=== PATIENT | male | born 1940 | race Caucasian/White ===

== ENCOUNTER 2017-02-04 17:00 | Observation (INO) ==
[2017-02-04] MEDS ORDERED: 0.9 % Sodium Chloride 1,000 ML IVC ONE (17:07)
--- NOTE | 2017-02-04 17:38 | Emergency Department Note ---
Disposition Clinical Impression: Altered mental status Qualifiers: Altered mental status type: unspecified Qualified Code(s): R41.82 - Altered mental status, unspecified Disposition: Admitted As Inpatient Condition: Fair Time of Disposition: 19:00 Altered Mental Status HPI - General Chief Complaint: ED Altered Mental Status Stated Complaint: AMS Time Seen by Provider: 02/04/17 17:12 Nursing Notes Reviewed: Yes Vital Signs Reviewed: Yes - History of Present Illness HPI Narrative: Patient was found by EMS and brought into the ED secondary to wandering around the city trying to get in cars that are not his. Patient told EMS that he is trying to get to a [facility]. Patient has a that is admitted here [facility]. Patient was previously admitted to [facility] for because he is unable to take care of himself. Unknown why patient was released. Patient currently has no complaints. - Related Data Home Medications Medication Instructions Recorded Confirmed Aricept 10 mg PO DAILY 02/04/17 02/04/17 Aspirin [Lo-Dose Aspirin EC] 81 mg PO DAILY 02/04/17 02/04/17 Fluticasone Propionate 50 mcg NS DAILY 02/04/17 02/04/17 Folic Acid 1 mg PO DAILY 02/04/17 02/04/17 Lisinopril 5 mg PO DAILY 02/04/17 02/04/17 Magnesium 250 mg PO DAILY 02/04/17 02/04/17 Mucinex 600 mg PO Q12HR 02/04/17 02/04/17 Niaspan 1,000 mg PO QPM 02/04/17 02/04/17 Nitroglycerin [Nitrostat] 0.4 mg SL PRN PRN 02/04/17 02/04/17 Omeprazole 40 mg PO DAILY 02/04/17 02/04/17 Plavix 37.5 mg PO DAILY 02/04/17 02/04/17 Simvastatin 40 mg PO DAILY 02/04/17 02/04/17 Symbicort 160/4.5 02/04/17 Allergies Allergy/AdvReac Type Severity Reaction Status Date / Time No Known Allergies Allergy Verified 05/22/15 22:28 All systems ED: reviewed and negative except as stated. Review of Systems: As Per HPI Constitutional: Denies: fever, chills, weakness Eyes: Denies: vision change ENT ED: Denies: congestion Cardiovascular: Denies: chest pain, palpitations Respiratory: Denies: cough Gastrointestinal: Denies: abdominal pain, nausea, vomiting, diarrhea Genitourinary: Denies: urgency, dysuria, frequency Musculoskeletal: Denies: back pain, neck pain, joint swelling, arthralgia, myalgia Integumentary: Denies: rash, abrasion Neurological: Denies: headache Psychiatric: Denies: anxiety Past Medical History - Past Medical History Attestation: Yes The following information was validated with the patient. Source: patient Medical history: Reports: no medical history Psychiatric history: Reports: no psych history - Social History Smoking Status: Current every day smoker Smokeless Tobacco Status: No Alcohol use: Reports: none Drug use: Reports: none Physical Exam 69-year-old male who is alert and oriented 3 and in no acute distress. Right now patient is lying in the bed comfortably. Patient has no focal neurologic deficits. Patient has no weakness. Patient answers questions appropriately Course Vital Signs Pulse Rate 76 02/04/17 17:15 Respiratory Rate 20 02/04/17 17:15 Blood Pressure 112/62 02/04/17 17:15 O2 Sat by Pulse Oximetry 100 02/04/17 17:15 Temperature 97.4 F L 02/07/17 22:45 Pulse Rate 58 02/07/17 22:45 Respiratory Rate 16 02/07/17 22:45 Blood Pressure 101/62 02/07/17 22:45 O2 Sat by Pulse Oximetry 96 02/07/17 22:45 Oxygen Delivery Oxygen Delivery Room Air Altered Mental Status - [facility] Narrative Medical decision making narrative: Patient is 77-year-old male found wandering around the city with altered mental status. Patient has a GCS of 15. He follows certain well. He has no focal no neurologic deficits. Patient's labs show no abnormalities. Head CT was negative for intracranial abnormalities of acute onset. Patient was previously at [facility] because he is unable to take care of himself. Unsure of why the patient is no longer there. The patient will need to be placed at a [facility] facility again. Kirsty of those services states that it will take 3 days to get patient placed. The patient is being admitted for altered mental status. Patient was accepted for admission by Jesus Cole the hospitalist - Lab Data Lab results reviewed: Yes I reviewed the patient's lab results. Lab results narrative: Short CBC 02/04/17 Range/Units 17:35 WBC 8.2 (4.3-11.1) K/mcL Hgb 13.3 (12.9-16.9) g/dL Hct 38.3 (37.5-50.1) % Plt Count 188 (140-400) K/mcL Neutrophils # 5.8 (1.6-8.9) K/mcL BMP 02/04/17 Range/Units 17:35 Sodium 140 (136-145) mEq/L Potassium 3.7 (3.5-4.5) mEq/L Chloride 105 (98-109) mEq/L Carbon Dioxide 26 (19-29) mEq/L BUN 13 (8-26) mg/dL Creatinine 0.79 (0.72-1.25) mg/dL Glucose 95 (70-99) mg/dL Calcium 9.4 (8.6-10.8) mg/dL Cardiac Enzymes 02/04/17 Range/Units 17:35 Troponin I 0.02 (0-0.03) ng/mL Liver Function 02/04/17 Range/Units 17:35 Total Bilirubin 1.5 H (0.2-1.2) mg/dL Direct Bilirubin 0.5 (0.0-0.5) mg/dL AST 19 (5-34) Units/L ALT 6 (0-55) Units/L Alkaline Phosphatase 93 (38-126) Units/L Albumin 3.5 (3.5-5.0) g/dL Result diagrams: 02/07/17 05:13 02/07/17 05:13 Lab Results 02/04/17 02/04/17 02/04/17 Range/Units 17:35 17:35 17:35 WBC 8.2 (4.3-11.1) K/mcL RBC 4.00 L (4.19-5.50) M/mcL Hgb 13.3 (12.9-16.9) g/dL Hct 38.3 (37.5-50.1) % MCV 95.8 (83.0-100.0) fL MCH 33.3 (28.0-33.3) pg MCHC 34.7 (31.6-35.5) g/dL RDW 12.1 (11.5-14.5) % Plt Count 188 (140-400) K/mcL MPV 9.6 (9.4-12.4) fL Immature Gran % 0.2 (0-4) % Seg Neutrophils % 71.1 % Lymphocytes % 20.0 % Monocytes % 7.3 % Eosinophils % 1.2 % Basophils % 0.2 % Neutrophils # 5.8 (1.6-8.9) K/mcL Lymphocytes # 1.6 (0.6-4.6) K/mcL Monocytes # 0.6 (0.0-1.3) K/mcL Eosinophils # 0.1 (0.0-0.6) K/mcL Basophils # 0.0 (0.0-0.2) K/mcL Sodium 140 (136-145) mEq/L Potassium 3.7 (3.5-4.5) mEq/L Chloride 105 (98-109) mEq/L Carbon Dioxide 26 (19-29) mEq/L BUN 13 (8-26) mg/dL Creatinine 0.79 (0.72-1.25) mg/dL Est GFR ( Amer) > 60 (> 60) Est GFR (Non-Af Amer) > 60 (> 60) BUN/Creatinine Ratio 16 (6-26) Glucose 95 (70-99) mg/dL Calculated Osmolality 290 (280-300) Calcium 9.4 (8.6-10.8) mg/dL Total Bilirubin 1.5 H (0.2-1.2) mg/dL Direct Bilirubin 0.5 (0.0-0.5) mg/dL Indirect Bilirubin 1.0 (0.0-1.2) mg/dL AST 19 (5-34) Units/L ALT 6 (0-55) Units/L Alkaline Phosphatase 93 (38-126) Units/L Creatine Kinase 69 (30-200) Units/L Troponin I 0.02 (0-0.03) ng/mL Serum Total Protein 6.8 (6.0-8.3) g/dL Albumin 3.5 (3.5-5.0) g/dL Globulin 3.3 (2.4-3.5) g/dL Albumin/Globulin Ratio 1.1 (1.1-2.2) Ethyl Alcohol < 10 (0-10) mg/dL - Radiology Data Radiology results reviewed: Yes I reviewed the patient's radiology results. Chest X-Ray 02/04/17 17:08 IMPRESSION: No acute abnormality detected. D/ / Jacoby An MD / Jacoby An MD Interpreting Provider: Jacoby An MD Head CT 02/04/17 18:28 IMPRESSION: Stable chronic ischemic and senescent changes, but no CT evidence for acute intracranial process. D/ / Seven Jimenez / Seven Jimenez Interpreting Provider: Seven Jimenez
[2017-02-04 17:42] LABS: Basophils % 0.2 %; Eosinophils # 0.1 K/mcL (0.0-0.6); Eosinophils % 1.2 %; Hematocrit 38.3 % (37.5-50.1); Hemoglobin 13.3 g/dL (12.9-16.9); Immature Granulocytes % 0.2 % (0-4); Lymphocytes # 1.6 K/mcL (0.6-4.6); Mean Corpuscular HGB Conc 34.7 g/dL (31.6-35.5); Mean Corpuscular Hemoglobin 33.3 pg (28.0-33.3); Mean Corpuscular Volume 95.8 fL (83.0-100.0); Mean Platelet Volume 9.6 fL (9.4-12.4); Monocytes # 0.6 K/mcL (0.0-1.3); Monocytes % 7.3 %; Neutrophils # 5.8 K/mcL (1.6-8.9); Platelet Count 188 K/mcL (140-400); Red Cell Distribution Width 12.1 % (11.5-14.5); Segmented Neutrophils % 71.1 %
[2017-02-04 17:57] LABS: Alanine Aminotransferase 6 Units/L (0-55); Albumin 3.5 g/dL (3.5-5.0); Albumin/Globulin Ratio 1.1 (1.1-2.2); Alkaline Phosphatase 93 Units/L (38-126); Aspartate Amino Transferase 19 Units/L (5-34); BUN/Creatinine Ratio 16 (6-26); Bilirubin,Direct 0.5 mg/dL (0.0-0.5); Bilirubin,Total 1.5 mg/dL (0.2-1.2); Blood Urea Nitrogen 13 mg/dL (8-26); Calcium 9.4 mg/dL (8.6-10.8); Carbon Dioxide 26 mEq/L (19-29); Chloride 105 mEq/L (98-109); Creatine Kinase 69 Units/L (30-200); Globulin 3.3 g/dL (2.4-3.5); Glucose 95 mg/dL (70-99); Osmolality,Calculated 290 (280-300); Potassium 3.7 mEq/L (3.5-4.5); Sodium 140 mEq/L (136-145); Total Protein 6.8 g/dL (6.0-8.3); eGFR For African Americans > 60 (> 60); eGFR For Non-African Americans > 60 (> 60)
[2017-02-04 17:58] LABS: Ethanol < 10 mg/dL (0-10)
--- NOTE | 2017-02-04 18:28 | Emergency Department Note ---
START Narrative - START START: I examined this patient and my medical decision-making was reviewed with the Resident Physician. I agree with the documented findings, disposition and treatment plan as described except to the extent set forth below. Patient ED by EMS. He was found wandering on [address] trying to getting cars. He states he was trying to get into his was sick. On exam he is in no acute distress. Oriented to self and place. Abdomen soft. Lungs clear. Vital stable. Plan. We did in fact confirm the patient's is an inpatient in the hospital. They have been attempting to get them both to a long term for placement, however they could not find him today. Patient will be admitted as it is Tuesday night and unable to get him placed into a safe facility at this time. We will admit to medicine.
--- NOTE | 2017-02-04 19:38 | Internal Med History&Physical ---
<Boris Barbosa - Last Filed: 02/05/17 02:09> Date of Encounter: 02/04/17 Time of Encounter: 19:38 Assessment and Plan (1) Dementia Current visit: Yes Status: Acute Mini Mental Status Exam score = 20 indicating clear impairment. May require 24 hour supervision. Dementia has rapidly progressed in the past 2 weeks acccording to the patient's since he stopped taking Aricept CT brain reveals stable chronic ischemic and senescent changes, but no CT evidence for acute intracranial process. Case management has been attempting to get both patient and his to a assisted for placement, however they could not find him today. Patient was admitted as it is Tuesday night and unable to get him placed into a safe facility at this time. Resume home Aricept Continue patient monitoring, may require a sitter to prevent from wandering Case management consulted Qualifiers: Dementia type: unspecified type Dementia behavioral disturbance: with behavioral disturbance Qualified Code(s): F03.91 - Unspecified dementia with behavioral disturbance (2) Protein-calorie malnutrition, moderate Current visit: Yes Status: Acute BMI 16.3 Patient with worsening dementia Nutrition consulted (3) COPD (chronic obstructive pulmonary disease) Current visit: Yes Status: Acute Acute exacerbation of COPD Wheezing on exam Continue nebulizers No antibiotics or steroids at this time Qualifiers: COPD type: COPD with acute exacerbation Qualified Code(s): J44.1 - Chronic obstructive pulmonary disease with (acute) exacerbation (4) HTN (hypertension) Current visit: Yes Status: Chronic Continue home meds Low salt diet Elevate legs while at rest Qualifiers: Hypertension type: essential hypertension Qualified Code(s): I10 - Essential (primary) hypertension (5) HLD (hyperlipidemia) Current visit: Yes Status: Chronic Continue home meds Qualifiers: Hyperlipidemia type: unspecified Qualified Code(s): E78.5 - Hyperlipidemia , unspecified (6) CAD (coronary artery disease) Current visit: Yes Status: Chronic S/p cardiac stents x5 Continue home meds Qualifiers: Coronary Disease-Associated Artery/Lesion type: [place] artery [place] vs. transplanted heart: [place] heart Associated angina: without angina Qualified Code(s): I25.10 - Atherosclerotic heart disease of [place] coronary artery without angina pectoris (7) Tobacco dependence Current visit: Yes Status: Chronic Tobacco cessation discussed Nicotine patch daily (8) DVT prophylaxis Current visit: Yes Status: Acute SCDs Internal Medicine - H&P: HPI Chief complaint: AMS Admitted From: Home Plans for Post Hospital Care: Transfer Group Home Facility History of present illness: Mr. Cortez is a 77 year old male with a PMH of Dementia, HTN, HLD, CAD with cardiac stents x5, and tobacco dependence that presented via EMS after found wandering around on [address] near his apartment trying to get into cars that were not his while trying to get to the hospital to see his . Patient' s is currently admitted here at [facility] and will likely be discharged to [facility] facility. Reportedly, case therapist has been attempting to get them both placed at a assisted, however they could not find him today. Patient is alert & oriented x3 but appears confused and is unable to recall much about his PMH. I spoke with his in room 3A11 who reports patient is a walker and has been brought home multiple times by police while wandering the streets at night. She states his Dementia has rapidly progressed in the past 2 weeks since patient stopped taking Aricept 1 month ago. He is currently alone at the apartment since his was admitted and has difficulty caring for self due to cognitive impairment. Patient will be admitted as he has wheezing on exam and it is Tuesday night and unable to get him placed into a safe facility at this time. Past Med Surg Social Fam HX - Past Medical History Medical history: coronary artery disease, hyperlipidemia, hypertension Psychiatric history: no psych history - Past Surgical History Surgical History: angioplasty/stent (x5) - Social History Smoking Status: Current every day smoker Smokeless Tobacco Status: No Alcohol use: none Drug use: none Internal Medicine - H&P: Meds Aricept 10 mg PO DAILY 02/04/17 [History] Aspirin [Lo-Dose Aspirin EC] 81 mg PO DAILY 02/04/17 [History] Fluticasone Propionate 50 mcg NS DAILY 02/04/17 [History] Folic Acid 1 mg PO DAILY 02/04/17 [History] Lisinopril 5 mg PO DAILY 02/04/17 [History] Magnesium 250 mg PO DAILY 02/04/17 [History] Mucinex 600 mg PO Q12HR 02/04/17 [History] Niaspan 1,000 mg PO QPM 02/04/17 [History] Nitroglycerin [Nitrostat] 0.4 mg SL PRN PRN 02/04/17 [History] Omeprazole 40 mg PO DAILY 02/04/17 [History] Plavix 37.5 mg PO DAILY 02/04/17 [History] Simvastatin 40 mg PO DAILY 02/04/17 [History] Symbicort 160/4.5 02/04/17 [History] 3 Allergy/AdvReac Type Severity Reaction Status Date / Time No Known Allergies Allergy Verified 05/22/15 22:28 All Systems PM: A 10-system review of systems was performed and is negative for pertinent findings except as documented above in the HPI. - Constitutional Constitutional: no anorexia, no chills, no fever(s), no weakness, no weight gain , no weight loss - EENT Eyes: no change in vision Nose, mouth and throat: no dry mouth, no nasal congestion, no sore throat - Cardiovascular Cardiovascular ROS IM: edema, no chest pain, no palpitations - Respiratory Respiratory: no cough, no dyspnea - Gastrointestinal Gastrointestinal: no abdominal pain, no diarrhea, no nausea, no vomiting - Genitourinary Genitourinary ROS male: no dysuria, no urinary frequency, no urinary urgency - Musculoskeletal Musculoskeletal ROS IM: no arthralgias, no numbness, no tingling - Integumentary Integumentary IM: no erythema - Neurological Neurological ROS: confusion, memory loss, no abnormal gait, no tremor(s), no weakness - Psychiatric Psychiatric: confusion, no change in appetite - Endocrine Endocrine IM: no polydipsia, no polyphagia, no polyuria - Hematologic/Lymphatic Hematologic/Lymphatic: easy bruising, no easy bleeding - Constitutional Vitals: Temp Pulse Resp BP Pulse Ox 98.1 F 60 20 121/64 100 02/04/17 17:16 02/04/17 18:32 02/04/17 18:32 02/04/17 18:32 02/04/17 18:32 General appearance: Present: cachectic, A&O X 3, pleasant, no acute distress. Absent: answers questions appropriately - Head Head exam: Present: atraumatic, normal inspection, normocephalic Additional comments: temporal wasting - Eye Eye exam: Present: EOMI, PERRL - ENT ENT exam: Present: mucous membranes moist, normal oropharynx - Neck Neck exam general surgery: Present: normal inspection, supple. Absent: lymphadenopathy, tenderness - Respiratory Respiratory exam: Present: wheezes. Absent: CTAB - Cardiovascular Cardiovascular exam: Present: RRR (occasional extra beat), +S1, +S2 - GI/Abdominal GI/Abdominal exam: Present: normal bowel sounds, soft. Absent: firm, guarding, tenderness - Extremities Exam Extremities exam: Present: full ROM, pedal edema (1+), warm - Back Exam Back exam: Present: normal inspection. Absent: paraspinal tenderness, tenderness - Neurological Exam Neurological exam: Present: alert, normal gait, oriented X3, no focal deficits, strengths equal and symetr throughout. Absent: abnormal gait, motor sensory deficit, facial droop, speech deficit - Expanded Neurological Exam Neurological exam expanded: Absent: tremor Patient oriented to: Present: person, place, time Speech: Present: fluid speech Neuro motor strength exam: LUE: 5, RUE: 5, LLE: 5, RLE: 5 Coma Scale Eye Opening: Spontaneous Coma Scale Motor Response: Obeys Commands Coma Scale Verbal Response: Oriented Coma Scale Total: 15 - Psychiatric Additional comments: Mini Mental Status exam score 20 - Skin Skin exam: Present: dry, intact, warm. Absent: erythema Internal Med - H&P Results - Labs CBC & Chem 7: 02/04/17 17:35 02/04/17 17:35 <Victorina Cyr - Last Filed: 02/05/17 03:04> Date of Encounter: 02/04/17 Internal Medicine - H&P: HPI History of present illness: Mr. Cortez is a 77 year old male All Systems PM: A 10-system review of systems was performed and is negative for pertinent findings except as documented above in the HPI. - Constitutional Vitals: Temp Pulse Resp BP Pulse Ox 97.7 F 49 17 125/76 97 02/04/17 23:29 02/04/17 23:29 02/04/17 23:29 02/04/17 23:29 02/04/17 23:29 Internal Med - H&P Results - Labs CBC & Chem 7: 02/04/17 17:35 02/04/17 17:35 - Attending Attestation I have independently personally seen the patient. Plan discussed with the resident. Patient is brought in for altered mental status. He has underlying dementia but otherwise he seems fully oriented to time place and person asymptomatic and quite mobile. On examination it was noted that he has bilateral wheezing and will restart him on nebulizer treatment. plugger worker will be consulted for placement
[2017-02-04] MEDS ORDERED: Naloxone 0.4 MG/ML INJ IVP PRN (20:49)
[2017-02-04] MEDS ORDERED: Nitroglycerin 0.4 MG TAB.SUBL SL PRN (23:06)
[2017-02-05] MEDS: Famotidine 20 MG TABLET PO SCH ×3 (00:32→22:02)
[2017-02-05] MEDS ORDERED: Ipratropium/Albuterol Neb 3 ML IH PRN (02:10)
[2017-02-05 05:45] LABS: Hematocrit 38.7 % (37.5-50.1); Hemoglobin 13.2 g/dL (12.9-16.9); Mean Corpuscular HGB Conc 34.1 g/dL (31.6-35.5); Mean Corpuscular Hemoglobin 32.9 pg (28.0-33.3); Mean Corpuscular Volume 96.5 fL (83.0-100.0); Mean Platelet Volume 10.1 fL (9.4-12.4); Platelet Count 180 K/mcL (140-400); Red Blood Count 4.01 M/mcL (4.19-5.50); Red Cell Distribution Width 12.1 % (11.5-14.5)
[2017-02-05 06:08] LABS: BUN/Creatinine Ratio 16 (6-26); Blood Urea Nitrogen 12 mg/dL (8-26); Calcium 8.9 mg/dL (8.6-10.8); Carbon Dioxide 27 mEq/L (19-29); Chloride 105 mEq/L (98-109); Glucose 81 mg/dL (70-99); Osmolality,Calculated 285 (280-300); Potassium 3.8 mEq/L (3.5-4.5); Sodium 138 mEq/L (136-145); eGFR For African Americans > 60 (> 60); eGFR For Non-African Americans > 60 (> 60)
[2017-02-05] MEDS: Aspirin Enteric Coated 81 MG Tablet PO SCH (08:40)
[2017-02-05] MEDS: Magnesium Oxide 400 MG TABLET PO SCH (08:40)
[2017-02-05] MEDS: Folic Acid 1 MG TABLET PO SCH (08:40)
[2017-02-05] MEDS: Fluticasone Propionate Nasal 50 MCG/SPRAY BOTTLE NS SCH (08:41)
[2017-02-05] MEDS ORDERED: Nicotine 7 MG PATCH.TD24 TD SCH (09:00)
--- NOTE | 2017-02-05 13:55 | Internal Med Progress Note ---
<Lay Bullock - Last Filed: 02/05/17 14:52> Date of Encounter: 02/05/17 Time of Encounter: 13:50 - Assessment and plan (1) Dementia Current Visit: Yes Status: Acute Assessment and plan: history of rapidly progressing dementia patient has not taken his aricept for about 1 month. frequently found wandering the streets. Head CT showed stable chronic ischemic and senescent changes, no evidence of acute intracranial process. consult to social and political studies professor for placement. PT/OT consulted. Qualifiers: Dementia type: unspecified type Dementia behavioral disturbance: with behavioral disturbance Qualified Code(s): F03.91 - Unspecified dementia with behavioral disturbance (2) Protein-calorie malnutrition, moderate Current Visit: Yes Status: Acute Assessment and plan: consult to nutrition. (3) COPD (chronic obstructive pulmonary disease) Current Visit: Yes Status: Acute Assessment and plan: not in acute exacerbation. PRN duonebs Qualifiers: COPD type: COPD with acute exacerbation Qualified Code(s): J44.1 - Chronic obstructive pulmonary disease with (acute) exacerbation (4) HTN (hypertension) Current Visit: Yes Status: Chronic Assessment and plan: continue home meds blood pressures stable at this time. Qualifiers: Hypertension type: essential hypertension Qualified Code(s): I10 - Essential (primary) hypertension (5) HLD (hyperlipidemia) Current Visit: Yes Status: Chronic Assessment and plan: continue statin Qualifiers: Hyperlipidemia type: unspecified Qualified Code(s): E78.5 - Hyperlipidemia , unspecified (6) CAD (coronary artery disease) Current Visit: Yes Status: Chronic Assessment and plan: history of stent placement x5 continue home ASA, statin, plavix Qualifiers: Coronary Disease-Associated Artery/Lesion type: [place] artery [place] vs. transplanted heart: [place] heart Associated angina: without angina Qualified Code(s): I25.10 - Atherosclerotic heart disease of [place] coronary artery without angina pectoris (7) Tobacco dependence Current Visit: Yes Status: Chronic Assessment and plan: nicotine patch PRn (8) DVT prophylaxis Current Visit: Yes Status: Acute Assessment and plan: heparin SQ - Subjective Interval history: 77 male evaluated at bedside. patient denies nausea, vomiting, diarrhea, fever, chills, chest pain, shortness of breath. he is alert and oriented x3. - Constitutional Vitals: Temp Pulse Resp BP Pulse Ox 97.4 F L 52 16 129/55 98 02/05/17 11:00 02/05/17 11:00 02/05/17 11:00 02/05/17 11:00 02/05/17 11:00 General appearance: Present: cachectic, A&O X 3, pleasant, no acute distress. Absent: answers questions appropriately - Head Head exam: Present: atraumatic, normocephalic - Neck Neck exam general surgery: Present: supple, trachea midline - Respiratory Respiratory exam: Present: CTAB - Cardiovascular Cardiovascular exam: Present: RRR, +S1, +S2 - GI/Abdominal GI/Abdominal exam: Present: normal bowel sounds, soft. Absent: distended, tenderness - Extremities Exam Extremities exam: Absent: cyanotic, pedal edema - Neurological Exam Neurological exam: Present: alert, oriented X3 - Skin Skin exam: Present: intact Internal Medicine: Result - Labs CBC & Chem 7: 02/05/17 04:26 02/05/17 04:26 - VTE Documentation of Mechanical Device: Intermittent pneumatic compression device Consult Discharge Plan - Plan Referrals: Eleazar Lerma Jr, MD [Primary Care Provider] - <HudsonVondavida - Last Filed: 02/05/17 17:08> Date of Encounter: 02/05/17 - Constitutional Vitals: Temp Pulse Resp BP Pulse Ox 97.4 F L 52 16 129/55 98 02/05/17 11:00 02/05/17 11:00 02/05/17 11:00 02/05/17 11:00 02/05/17 11:00 Internal Medicine: Result - Labs CBC & Chem 7: 02/05/17 04:26 02/05/17 04:26 Labs: Short CBC 02/05/17 Range/Units 04:26 WBC 5.8 (4.3-11.1) K/mcL Hgb 13.2 (12.9-16.9) g/dL Hct 38.7 (37.5-50.1) % Plt Count 180 (140-400) K/mcL BMP 02/05/17 04:26 Sodium 138 Potassium 3.8 Chloride 105 Carbon Dioxide 27 BUN 12 Creatinine 0.74 Glucose 81 Calcium 8.9 - Impressions Impressions Echocardiogram 02/04/17 23:10 Impressions: LVEF 60-65%. Normal left ventricular size and systolic function. Normal diastolic function of the left ventricle. No significant valvular dysfunction. No pulmonary hypertension. Left Ventricular Wall Motion: Rest Echo Findings All wall segments showed normal motion. Findings: Study Quality * Technically adequate exam. ECG Findings * Normal sinus rhythm. Left Ventricle * LVEF 60-65%. * Normal LV chamber size, wall thickness and function. * Normal left ventricular diastolic function. Right Ventricle * Normal right ventricular structure and function. Left Atrium * Normal left atrial size. Right Atrium * Normal right atrial size. Interatrial Septum * Interatrial septum not well evaluated. Aortic Valve * Trileaflet aortic valve. * Trileaflet aortic valve with normal function. * No aortic regurgitation. * No aortic stenosis. Mitral Valve * Normal mitral valve structure and function. * No mitral regurgitation. * No mitral stenosis. Tricuspid Valve * Normal tricuspid valve structure. * Mild tricuspid regurgitation. * No pulmonary hypertension. Pulmonic Valve * Pulmonic valve not well visualized. Aorta * Normally sized aortic root. Pericardium * The pericardium appears normal. IVC * Normal IVC dimensions and inspiratory collapse. - Attending Attestation I have seen and examined the patient independently. I have discussed with resident Dr. Bullock regarding the management plan. Agree with the documentation. Patient denies shortness of breath. He is intermittently disoriented and frequently walk around in and sometimes out of the unit. We will place a sitter because of severe dementia. Continue supportive treatment. mop worker consult for placement.
[2017-02-05] MEDS ORDERED: Nicotine 7 MG PATCH.TD24 TD PRN (13:56)
[2017-02-05] MEDS: Niacin (24 HR) 500 MG TAB.ER.24H PO SCH (16:14)
[2017-02-05] MEDS: *HR* Heparin 5,000 UNIT/ML VIAL SQ SCH (16:15)
[2017-02-05] MEDS: POM PO SCH (22:02)
[2017-02-06 01:06] LABS: Basophils % 0.3 %; Eosinophils # 0.2 K/mcL (0.0-0.6); Eosinophils % 2.8 %; Hematocrit 37.1 % (37.5-50.1); Hemoglobin 12.6 g/dL (12.9-16.9); Lymphocytes % 30.8 %; Mean Corpuscular Hemoglobin 32.5 pg (28.0-33.3); Mean Corpuscular Volume 95.6 fL (83.0-100.0); Mean Platelet Volume 9.9 fL (9.4-12.4); Monocytes # 0.7 K/mcL (0.0-1.3); Monocytes % 10.6 %; Neutrophils # 3.6 K/mcL (1.6-8.9); Platelet Count 198 K/mcL (140-400); Red Blood Count 3.88 M/mcL (4.19-5.50); Segmented Neutrophils % 55.5 %
[2017-02-06 05:42] LABS: Bilirubin,Urine Negative (Negative); Blood,Urine Negative (Negative); Clarity,Urine Clear (Clear); Color,Urine Yellow (Yellow); Glucose,Urine (UA) Normal (Normal); Ketones,Urine Negative (Negative); Leukocyte Esterase,Urine Negative (Negative); Nitrite,Urine Negative (Negative); Protein,Urine Negative (Neg-Trace); Specific Gravity,Urine 1.028 (1.010-1.025); Urobilinogen,Urine Normal (Normal)
[2017-02-06 05:48] LABS: Amphetamine Screen,Urine Negative ng/mL (Cutoff=1000); Barbiturate Screen,Urine Negative ng/mL (Cutoff=200); Benzodiazepines Screen,Urine Negative ng/mL (Cutoff=200); Cannabinoid Screen,Urine Negative ng/mL (Cutoff = 50); Cocaine Screen,Urine Negative ng/mL (Cutoff= 300); Opiate Screen,Urine Negative ng/mL (Cutoff=300); Phencyclidine Screen,Urine Negative ng/mL (Cutoff=25)
[2017-02-06] MEDS: *HR* Heparin 5,000 UNIT/ML VIAL SQ SCH (06:23)
[2017-02-06] MEDS: Folic Acid 1 MG TABLET PO SCH (08:16)
[2017-02-06] MEDS: Aspirin Enteric Coated 81 MG Tablet PO SCH (08:16)
[2017-02-06] MEDS: Famotidine 20 MG TABLET PO SCH ×2 (08:16→20:23)
[2017-02-06] MEDS: Magnesium Oxide 400 MG TABLET PO SCH (08:16)
[2017-02-06] MEDS: Fluticasone Propionate Nasal 50 MCG/SPRAY BOTTLE NS SCH (08:17)
--- NOTE | 2017-02-06 10:19 | Internal Med Progress Note ---
<Lay Bullock - Last Filed: 02/06/17 10:17> Date of Encounter: 02/06/17 Time of Encounter: 10:17 - Assessment and plan (1) Dementia Current Visit: Yes Status: Acute Assessment and plan: history of rapidly progressing dementia patient has not taken his aricept for about 1 month. frequently found wandering the streets. Head CT showed stable chronic ischemic and senescent changes, no evidence of acute intracranial process. consult to older adult social work specialist for placement. PT/OT consulted. continue aricept. awaiting older adult social work specialist for placement. Qualifiers: Dementia type: unspecified type Dementia behavioral disturbance: with behavioral disturbance Qualified Code(s): F03.91 - Unspecified dementia with behavioral disturbance (2) Protein-calorie malnutrition, moderate Current Visit: Yes Status: Acute Assessment and plan: consult to nutrition. (3) COPD (chronic obstructive pulmonary disease) Current Visit: Yes Status: Acute Assessment and plan: not in acute exacerbation. PRN duonebs Qualifiers: COPD type: COPD with acute exacerbation Qualified Code(s): J44.1 - Chronic obstructive pulmonary disease with (acute) exacerbation (4) HTN (hypertension) Current Visit: Yes Status: Chronic Assessment and plan: continue home meds blood pressures stable at this time. Qualifiers: Hypertension type: essential hypertension Qualified Code(s): I10 - Essential (primary) hypertension (5) HLD (hyperlipidemia) Current Visit: Yes Status: Chronic Assessment and plan: continue statin Qualifiers: Hyperlipidemia type: unspecified Qualified Code(s): E78.5 - Hyperlipidemia , unspecified (6) CAD (coronary artery disease) Current Visit: Yes Status: Chronic Assessment and plan: history of stent placement x5 continue home ASA, statin, plavix ECho from yesterday showed no significant abnormalities. Qualifiers: Coronary Disease-Associated Artery/Lesion type: [place] artery [place] vs. transplanted heart: [place] heart Associated angina: without angina Qualified Code(s): I25.10 - Atherosclerotic heart disease of [place] coronary artery without angina pectoris (7) Tobacco dependence Current Visit: Yes Status: Chronic Assessment and plan: nicotine patch PRn (8) DVT prophylaxis Current Visit: Yes Status: Acute Assessment and plan: ambulate TID. patient likes to ambulate frequently, so heparin SQ was discontinued. - Subjective Interval history: 77 male evaluated at bedside. patient denies nausea, vomiting, diarrhea, fever, chills, chest pain, shortness of breath. he is alert and oriented x3. - Constitutional Vitals: Temp Pulse Resp BP Pulse Ox 97.9 F 54 16 119/67 96 02/06/17 07:25 02/06/17 07:25 02/06/17 07:25 02/06/17 07:25 02/06/17 07:25 General appearance: Present: cachectic, A&O X 3, pleasant, no acute distress. Absent: answers questions appropriately Internal Medicine: Result - Labs CBC & Chem 7: 02/06/17 00:42 02/05/17 04:26 Labs: Short CBC 02/06/17 Range/Units 00:42 WBC 6.4 (4.3-11.1) K/mcL Hgb 12.6 L (12.9-16.9) g/dL Hct 37.1 L (37.5-50.1) % Plt Count 198 (140-400) K/mcL Neutrophils # 3.6 (1.6-8.9) K/mcL Urine 02/06/17 Range/Units 04:30 Urine Color Yellow (Yellow) Urine Clarity Clear (Clear) Urine pH 6.0 (5.0-8.0) pH Units Ur Specific [place] 1.028 H (1.010-1.025) Urine Protein Negative (Neg-Trace) mg/dL Urine Glucose (UA) Normal (Normal) mg/dL - Impressions Impressions Echocardiogram 02/04/17 23:10 Impressions: LVEF 60-65%. Normal left ventricular size and systolic function. Normal diastolic function of the left ventricle. No significant valvular dysfunction. No pulmonary hypertension. Left Ventricular Wall Motion: Rest Echo Findings All wall segments showed normal motion. Findings: Study Quality * Technically adequate exam. ECG Findings * Normal sinus rhythm. Left Ventricle * LVEF 60-65%. * Normal LV chamber size, wall thickness and function. * Normal left ventricular diastolic function. Right Ventricle * Normal right ventricular structure and function. Left Atrium * Normal left atrial size. Right Atrium * Normal right atrial size. Interatrial Septum * Interatrial septum not well evaluated. Aortic Valve * Trileaflet aortic valve. * Trileaflet aortic valve with normal function. * No aortic regurgitation. * No aortic stenosis. Mitral Valve * Normal mitral valve structure and function. * No mitral regurgitation. * No mitral stenosis. Tricuspid Valve * Normal tricuspid valve structure. * Mild tricuspid regurgitation. * No pulmonary hypertension. Pulmonic Valve * Pulmonic valve not well visualized. Aorta * Normally sized aortic root. Pericardium * The pericardium appears normal. IVC * Normal IVC dimensions and inspiratory collapse. - VTE Documentation of Mechanical Device: Intermittent pneumatic compression device Consult Discharge Plan - Plan Referrals: Eleazar Lerma Jr, MD [Primary Care Provider] - <TreviñoMaria - Last Filed: 02/06/17 16:04> Date of Encounter: 02/06/17 - Constitutional Vitals: Temp Pulse Resp BP Pulse Ox 97.8 F 70 17 125/72 98 02/06/17 11:22 02/06/17 11:22 02/06/17 11:22 02/06/17 11:22 02/06/17 11:22 Internal Medicine: Result - Labs CBC & Chem 7: 02/06/17 00:42 02/05/17 04:26 Labs: Short CBC 02/06/17 Range/Units 00:42 WBC 6.4 (4.3-11.1) K/mcL Hgb 12.6 L (12.9-16.9) g/dL Hct 37.1 L (37.5-50.1) % Plt Count 198 (140-400) K/mcL Neutrophils # 3.6 (1.6-8.9) K/mcL Urine 02/06/17 Range/Units 04:30 Urine Color Yellow (Yellow) Urine Clarity Clear (Clear) Urine pH 6.0 (5.0-8.0) pH Units Ur Specific [place] 1.028 H (1.010-1.025) Urine Protein Negative (Neg-Trace) mg/dL Urine Glucose (UA) Normal (Normal) mg/dL - Impressions Impressions Echocardiogram 02/04/17 23:10 Impressions: LVEF 60-65%. Normal left ventricular size and systolic function. Normal diastolic function of the left ventricle. No significant valvular dysfunction. No pulmonary hypertension. Left Ventricular Wall Motion: Rest Echo Findings All wall segments showed normal motion. Findings: Study Quality * Technically adequate exam. ECG Findings * Normal sinus rhythm. Left Ventricle * LVEF 60-65%. * Normal LV chamber size, wall thickness and function. * Normal left ventricular diastolic function. Right Ventricle * Normal right ventricular structure and function. Left Atrium * Normal left atrial size. Right Atrium * Normal right atrial size. Interatrial Septum * Interatrial septum not well evaluated. Aortic Valve * Trileaflet aortic valve. * Trileaflet aortic valve with normal function. * No aortic regurgitation. * No aortic stenosis. Mitral Valve * Normal mitral valve structure and function. * No mitral regurgitation. * No mitral stenosis. Tricuspid Valve * Normal tricuspid valve structure. * Mild tricuspid regurgitation. * No pulmonary hypertension. Pulmonic Valve * Pulmonic valve not well visualized. Aorta * Normally sized aortic root. Pericardium * The pericardium appears normal. IVC * Normal IVC dimensions and inspiratory collapse. - Attending Attestation I have seen and examined patient independently. I have discussed with resident DR Bullock regarding the management plan. Agree with the documentation. Patient is stable. Continue current treatment and waiting for placement.
--- NOTE | 2017-02-06 11:18 | Electrocardiograph Report ---
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
[2017-02-06] MEDS: Niacin (24 HR) 500 MG TAB.ER.24H PO SCH (16:58)
[2017-02-06] MEDS: POM PO SCH (20:23)
[2017-02-07 05:37] LABS: Basophils % 0.5 %; Eosinophils # 0.2 K/mcL (0.0-0.6); Eosinophils % 3.2 %; Hematocrit 37.9 % (37.5-50.1); Hemoglobin 12.9 g/dL (12.9-16.9); Immature Granulocytes % 0.5 % (0-4); Lymphocytes # 1.9 K/mcL (0.6-4.6); Lymphocytes % 28.6 %; Mean Corpuscular Hemoglobin 32.4 pg (28.0-33.3); Mean Corpuscular Volume 95.2 fL (83.0-100.0); Mean Platelet Volume 9.9 fL (9.4-12.4); Monocytes # 0.6 K/mcL (0.0-1.3); Monocytes % 9.6 %; Neutrophils # 3.8 K/mcL (1.6-8.9); Platelet Count 213 K/mcL (140-400); Red Blood Count 3.98 M/mcL (4.19-5.50); Segmented Neutrophils % 57.6 %
[2017-02-07 05:47] LABS: BUN/Creatinine Ratio 22 (6-26); Blood Urea Nitrogen 18 mg/dL (8-26); Calcium 9.3 mg/dL (8.6-10.8); Carbon Dioxide 27 mEq/L (19-29); Chloride 105 mEq/L (98-109); Glucose 104 mg/dL (70-99); Osmolality,Calculated 290 (280-300); Potassium 3.9 mEq/L (3.5-4.5); Sodium 139 mEq/L (136-145); eGFR For African Americans > 60 (> 60); eGFR For Non-African Americans > 60 (> 60)
[2017-02-07] MEDS: Folic Acid 1 MG TABLET PO SCH (08:54)
[2017-02-07] MEDS: Aspirin Enteric Coated 81 MG Tablet PO SCH (08:54)
[2017-02-07] MEDS: Magnesium Oxide 400 MG TABLET PO SCH (08:54)
[2017-02-07] MEDS: Fluticasone Propionate Nasal 50 MCG/SPRAY BOTTLE NS SCH (08:54)
[2017-02-07] MEDS: Famotidine 20 MG TABLET PO SCH ×2 (08:54→20:58)
--- NOTE | 2017-02-07 14:05 | Internal Med Progress Note ---
<Lay Bullock - Last Filed: 02/07/17 14:01> Date of Encounter: 02/07/17 Time of Encounter: 14:02 - Assessment and plan (1) Dementia Current Visit: Yes Status: Acute Assessment and plan: history of rapidly progressing dementia patient has not taken his aricept for about 1 month. frequently found wandering the streets. Head CT showed stable chronic ischemic and senescent changes, no evidence of acute intracranial process. consult to health care social worker for placement. PT/OT evaluated. no further recs at this time. continue aricept. awaiting health care social worker for placement to [facility]. Qualifiers: Dementia type: unspecified type Dementia behavioral disturbance: with behavioral disturbance Qualified Code(s): F03.91 - Unspecified dementia with behavioral disturbance (2) Protein-calorie malnutrition, moderate Current Visit: Yes Status: Acute Assessment and plan: consult to nutrition. (3) COPD (chronic obstructive pulmonary disease) Current Visit: Yes Status: Acute Assessment and plan: not in acute exacerbation. PRN duonebs Qualifiers: COPD type: COPD with acute exacerbation Qualified Code(s): J44.1 - Chronic obstructive pulmonary disease with (acute) exacerbation (4) HTN (hypertension) Current Visit: Yes Status: Chronic Assessment and plan: continue home meds blood pressures stable at this time. Qualifiers: Hypertension type: essential hypertension Qualified Code(s): I10 - Essential (primary) hypertension (5) HLD (hyperlipidemia) Current Visit: Yes Status: Chronic Assessment and plan: continue statin Qualifiers: Hyperlipidemia type: unspecified Qualified Code(s): E78.5 - Hyperlipidemia , unspecified (6) CAD (coronary artery disease) Current Visit: Yes Status: Chronic Assessment and plan: history of stent placement x5 continue home ASA, statin, plavix ECho from yesterday showed no significant abnormalities. Qualifiers: Coronary Disease-Associated Artery/Lesion type: [place] artery [place] vs. transplanted heart: [place] heart Associated angina: without angina Qualified Code(s): I25.10 - Atherosclerotic heart disease of [place] coronary artery without angina pectoris (7) Tobacco dependence Current Visit: Yes Status: Chronic Assessment and plan: nicotine patch PRn (8) DVT prophylaxis Current Visit: Yes Status: Acute Assessment and plan: ambulate TID. patient likes to ambulate frequently, so heparin SQ was discontinued. - Subjective Interval history: 77 male evaluated at bedside. patient denies nausea, vomiting, diarrhea, fever, chills, chest pain, shortness of breath. he is alert and oriented x3. - Constitutional Vitals: Temp Pulse Resp BP Pulse Ox 97.4 F L 69 16 132/64 97 02/07/17 11:34 02/07/17 11:34 02/07/17 11:34 02/07/17 11:34 02/07/17 11:34 General appearance: Present: cachectic, A&O X 3, pleasant, no acute distress. Absent: answers questions appropriately - Head Head exam: Present: atraumatic, normocephalic - Neck Neck exam general surgery: Present: supple, trachea midline - Respiratory Respiratory exam: Present: CTAB - Cardiovascular Cardiovascular exam: Present: RRR, +S1, +S2 - GI/Abdominal GI/Abdominal exam: Present: normal bowel sounds, soft. Absent: distended, tenderness - Extremities Exam Extremities exam: Absent: cyanotic, pedal edema - Neurological Exam Neurological exam: Present: alert, oriented X3, no focal deficits - Psychiatric Psychiatric exam: Present: normal affect, normal mood Internal Medicine: Result - Labs CBC & Chem 7: 02/07/17 05:13 02/07/17 05:13 Labs: Short CBC 02/07/17 Range/Units 05:13 WBC 6.5 (4.3-11.1) K/mcL Hgb 12.9 (12.9-16.9) g/dL Hct 37.9 (37.5-50.1) % Plt Count 213 (140-400) K/mcL Neutrophils # 3.8 (1.6-8.9) K/mcL BMP 02/07/17 05:13 Sodium 139 Potassium 3.9 Chloride 105 Carbon Dioxide 27 BUN 18 Creatinine 0.83 Glucose 104 H Calcium 9.3 - VTE Documentation of Mechanical Device: Intermittent pneumatic compression device Consult Discharge Plan - Plan Referrals: Eleazar Lerma Jr, MD [Primary Care Provider] - <Maria Treviño - Last Filed: 02/07/17 16:55> Date of Encounter: 02/07/17 - Constitutional Vitals: Temp Pulse Resp BP Pulse Ox 97.4 F L 72 16 121/66 97 02/07/17 11:34 02/07/17 15:05 02/07/17 15:05 02/07/17 15:05 02/07/17 11:34 Internal Medicine: Result - Labs CBC & Chem 7: 02/07/17 05:13 02/07/17 05:13 Labs: Short CBC 02/07/17 Range/Units 05:13 WBC 6.5 (4.3-11.1) K/mcL Hgb 12.9 (12.9-16.9) g/dL Hct 37.9 (37.5-50.1) % Plt Count 213 (140-400) K/mcL Neutrophils # 3.8 (1.6-8.9) K/mcL BMP 02/07/17 05:13 Sodium 139 Potassium 3.9 Chloride 105 Carbon Dioxide 27 BUN 18 Creatinine 0.83 Glucose 104 H Calcium 9.3 - Attending Attestation I saw and examined the patient independently. I have discussed with resident Dr Bullock regarding the management plan. Agree with the documentation. Patient is demented, pleasant, walking around in the room and hallway. Vitals are stable. Waiting for placement.
[2017-02-07] MEDS: Niacin (24 HR) 500 MG TAB.ER.24H PO SCH (16:59)
[2017-02-07] MEDS: POM PO SCH (20:58)
[2017-02-08] MEDS: Fluticasone Propionate Nasal 50 MCG/SPRAY BOTTLE NS SCH ×2 (07:23→07:24)
[2017-02-08] MEDS: Aspirin Enteric Coated 81 MG Tablet PO SCH (07:23)
[2017-02-08] MEDS: Magnesium Oxide 400 MG TABLET PO SCH (07:23)
[2017-02-08] MEDS: Famotidine 20 MG TABLET PO SCH (07:23)
[2017-02-08] MEDS: Folic Acid 1 MG TABLET PO SCH (07:23)
[2017-02-08 09:29] VITALS: BP 153/65
--- NOTE | 2017-02-08 10:50 | Discharge Summary ---
Date of Encounter: 02/08/17 Time of Encounter: 10:48 - Discharge Diagnosis (1) Altered mental status Priority: Primary Status: Acute Qualifiers: Altered mental status type: unspecified Qualified Code(s): R41.82 - Altered mental status, unspecified (2) Dementia Priority: Secondary Status: Acute Qualifiers: Dementia type: unspecified type Dementia behavioral disturbance: with behavioral disturbance Qualified Code(s): F03.91 - Unspecified dementia with behavioral disturbance (3) COPD (chronic obstructive pulmonary disease) Priority: Secondary Status: Acute Qualifiers: COPD type: COPD with acute exacerbation Qualified Code(s): J44.1 - Chronic obstructive pulmonary disease with (acute) exacerbation (4) HTN (hypertension) Priority: Secondary Status: Chronic Qualifiers: Hypertension type: essential hypertension Qualified Code(s): I10 - Essential (primary) hypertension (5) HLD (hyperlipidemia) Priority: Secondary Status: Chronic Qualifiers: Hyperlipidemia type: unspecified Qualified Code(s): E78.5 - Hyperlipidemia , unspecified (6) CAD (coronary artery disease) Priority: Secondary Status: Chronic Qualifiers: Coronary Disease-Associated Artery/Lesion type: [place] artery [place] vs. transplanted heart: [place] heart Associated angina: without angina Qualified Code(s): I25.10 - Atherosclerotic heart disease of [place] coronary artery without angina pectoris (7) Tobacco dependence Priority: Secondary Status: Chronic (8) Protein-calorie malnutrition, moderate Priority: Secondary Status: Acute - Discharge Medications Home Medications: Aricept 10 mg PO DAILY 02/04/17 [History] Aspirin [Lo-Dose Aspirin EC] 81 mg PO DAILY 02/04/17 [History] Fluticasone Propionate 50 mcg NS DAILY 02/04/17 [History] Folic Acid 1 mg PO DAILY 02/04/17 [History] Lisinopril 5 mg PO DAILY 02/04/17 [History] Magnesium 250 mg PO DAILY 02/04/17 [History] Mucinex 600 mg PO Q12HR 02/04/17 [History] Niaspan 1,000 mg PO QPM 02/04/17 [History] Nitroglycerin [Nitrostat] 0.4 mg SL PRN PRN 02/04/17 [History] Omeprazole 40 mg PO DAILY 02/04/17 [History] Plavix 37.5 mg PO DAILY 02/04/17 [History] Simvastatin 40 mg PO DAILY 02/04/17 [History] Symbicort 160/4.5 02/04/17 [History] Ipratropium/Albuterol Neb [Duoneb] 3 ml IH [id number] PRN inhsol 02/08/17 [Rx] Nicotine Patch [Nicoderm] 7 mg TD DAILY PRN patch.td24 02/08/17 [Rx] Allergies/Adverse Reactions: 3 Allergy/AdvReac Type Severity Reaction Status Date / Time No Known Allergies Allergy Verified 05/22/15 22:28 Date of admission: 02/04/17 19:00 Primary care physician: Eleazar Lerma Jr, MD Consults: 02/04/17 20:50 Consult to Director Of Corporate Strategy [CONS] Routine Reason for SW Consult: Worsening Dementia, unsafe to live alone 02/04/17 20:53 Consult to Physical Therapy [CONS] Routine Comment: Evaluate, develop and implement POC Reason for Consult: placement OT [Consult to Occupational Therapy] [CONS] Routine Comment: Evaluate, develop and implement POC Reason for Consult: placement 02/04/17 20:59 Consult to Nutrition [CONS] Routine Comment: Consulting Provider: NUTRITION Reason for Dietary Consult: PO Supplementation - Patient Status Disposition: Transfer SNF Condition: Good Overall status at discharge: patient is back to baseline - Discharge Instructions Follow Up With: Eleazar Lerma Jr, MD [Primary Care Provider] - - Diet and Activity Activity: as per physical therapy, increase activity as tolerated Diet: low salt diet Hospital course: Mr. Cortez is a 77 year old male with a PMH of Dementia, HTN, HLD, CAD with cardiac stents x5, and tobacco dependence that presented via EMS after found wandering around on [facility] near his apartment trying to get into cars that were not his while trying to get to the hospital to see his . Patient' s is currently admitted here at [facility] and will likely be discharged to [facility] facility. Reportedly, case investigator has been attempting to get them both placed at a prison, however they could not find him today. Patient is alert & oriented x3 but appears confused and is unable to recall much about his PMH. I spoke with his in room 3A11 who reports patient is a walker and has been brought home multiple times by police while wandering the streets at night. She states his Dementia has rapidly progressed in the past 2 weeks since patient stopped taking Aricept 1 month ago. He is currently alone at the apartment since his was admitted and has difficulty caring for self due to cognitive impairment. Pt was admitted in the hospital for altered mental status due t worsening dementia. He was placed on fall precautions and continued symptomatic and supportive care. he was required sitter. All his work up for infections are negative. PT / OT evaluated him, who recommend to transfer to ECF for further care. So will d/c him to ECF in stable condition today. - Time Spent with Patient Total time spent providing and/or coordinating discharge services: - Constitutional Vitals: Temp Pulse Resp BP Pulse Ox 97.4 F L 86 16 153/65 99 02/08/17 09:28 02/08/17 09:28 02/08/17 09:28 02/08/17 09:28 02/08/17 09:28 General appearance: Present: cachectic, A&O X 0, pleasant, no acute distress. Absent: answers questions appropriately - Head Head exam: Present: atraumatic, normal inspection - Respiratory Respiratory exam: Present: decreased breath sounds, wheezes (mild). Absent: accessory muscle use, rales, rhonchi - Cardiovascular Cardiovascular exam: Present: RRR, +S1, +S2. Absent: diastolic murmur, gallop, rubs, systolic murmur - GI/Abdominal GI/Abdominal exam: Present: normal bowel sounds, soft. Absent: rebound, rigid, tenderness - Extremities Exam Extremities exam: Absent: calf tenderness, pedal edema, tenderness - Back Exam Back exam: Absent: CVA tenderness (L), CVA tenderness (R) - Psychiatric Additional comments: pleasantly demented - VTE Documentation of Mechanical Device: Intermittent pneumatic compression device
--- NOTE | 2017-02-08 10:53 | Physician Discharge Referral ---
ExtendedCare Referral Info Transfer To: F Provider in Charge after Transfer: PCP Institutional Level of Care: Skilled - Diagnosis (1) Altered mental status Status: Acute (2) Dementia Status: Acute (3) COPD (chronic obstructive pulmonary disease) Status: Acute (4) HTN (hypertension) Status: Chronic (5) HLD (hyperlipidemia) Status: Chronic (6) CAD (coronary artery disease) Status: Chronic (7) Tobacco dependence Status: Chronic (8) Protein-calorie malnutrition, moderate Status: Acute - Transfer Medications Home Medications: Aricept 10 mg PO DAILY 02/04/17 [History] Aspirin [Lo-Dose Aspirin EC] 81 mg PO DAILY 02/04/17 [History] Fluticasone Propionate 50 mcg NS DAILY 02/04/17 [History] Folic Acid 1 mg PO DAILY 02/04/17 [History] Lisinopril 5 mg PO DAILY 02/04/17 [History] Magnesium 250 mg PO DAILY 02/04/17 [History] Mucinex 600 mg PO Q12HR 02/04/17 [History] Niaspan 1,000 mg PO QPM 02/04/17 [History] Nitroglycerin [Nitrostat] 0.4 mg SL PRN PRN 02/04/17 [History] Omeprazole 40 mg PO DAILY 02/04/17 [History] Plavix 37.5 mg PO DAILY 02/04/17 [History] Simvastatin 40 mg PO DAILY 02/04/17 [History] Symbicort 160/4.5 02/04/17 [History] Ipratropium/Albuterol Neb [Duoneb] 3 ml IH [id number] PRN inhsol 02/08/17 [Rx] Nicotine Patch [Nicoderm] 7 mg TD DAILY PRN patch.td24 02/08/17 [Rx] Allergies/Adverse Reactions: 3 Allergy/AdvReac Type Severity Reaction Status Date / Time No Known Allergies Allergy Verified 05/22/15 22:28 - Respiratory Orders Smoking Cessation: Smoking cessation has been advised. For more information, call the [place] Tobacco Quit Line at 8-247-IVEV-NOW. CERTIFICATION: I certify that the transfer of the above named patient to an Extended Care Facility is necessary for the continuing treatment of the diagnosis listed. The above information is true and accurate reflection of patient's current condition. Confidential - Redisclosure prohibited without a patient's written consent.
[2017-02-08] MEDS ORDERED: FLUARIX QUAD 2017-18 36MOS UP/PF 0.5 ML SYRINGE IM ONE (13:00)
== END 2017-02-08 13:40 ==
LOC: EMEROO 17:00 → 3NENU 17:00 → SUATTDRO 19:00 → 3NENU 19:49
PROVIDERS: ADMIT Internal Medicine; ATTEND Family Medicine

== ENCOUNTER 2017-12-19 20:05 | Observation (INO) ==
[2017-12-19] MEDS ORDERED: 0.9 % Sodium Chloride 1,000 ML IVC ONE ×2 (20:09→22:18)
--- NOTE | 2017-12-19 20:17 | Emergency Department Note ---
Disposition Clinical Impression: Heat exhaustion Qualifiers: Encounter type: initial encounter Qualified Code(s): T67.5XXA - Heat exhaustion , unspecified, initial encounter Disposition: Still a Patient General Adult HPI - General Chief complaint: ED Altered Mental Status Stated complaint: heat stroke Time Seen by Provider: 12/19/17 20:09 Source: patient Limitations: no limitations - History of Present Illness Pain Scale: 0 - Related Data Home Medications Medication Instructions Recorded Confirmed Aricept 10 mg PO DAILY 02/04/17 02/04/17 Aspirin [Lo-Dose Aspirin EC] 81 mg PO DAILY 02/04/17 02/04/17 Fluticasone Propionate 50 mcg NS DAILY 02/04/17 02/04/17 Folic Acid 1 mg PO DAILY 02/04/17 02/04/17 Lisinopril 5 mg PO DAILY 02/04/17 02/04/17 Magnesium 250 mg PO DAILY 02/04/17 02/04/17 Mucinex 600 mg PO Q12HR 02/04/17 02/04/17 Niaspan 1,000 mg PO QPM 02/04/17 02/04/17 Nitroglycerin [Nitrostat] 0.4 mg SL PRN PRN 02/04/17 02/04/17 Omeprazole 40 mg PO DAILY 02/04/17 02/04/17 Plavix 37.5 mg PO DAILY 02/04/17 02/04/17 Simvastatin 40 mg PO DAILY 02/04/17 02/04/17 Symbicort 160/4.5 02/04/17 Previous Rx's Medication Instructions Recorded Ipratropium/Albuterol Neb [Duoneb] 3 ml IH [id number] PRN inhsol 02/08/17 Nicotine Patch [Nicoderm] 7 mg TD DAILY PRN patch.td24 02/08/17 Allergies Allergy/AdvReac Type Severity Reaction Status Date / Time No Known Allergies Allergy Verified 05/22/15 22:28 Past Medical History - Past Medical History Medical history: Reports: non-contributory Surgical history: Reports: angioplasty/stent (x5) Psychiatric history: Reports: no psych history - Social History Smoking Status: Current every day smoker Smokeless Tobacco Status: No Alcohol use: Reports: none Drug use: Reports: none Physical Exam - General Limitations: no limitations General appearance: lethargic Course - Reevaluation(s) Reevaluation #1: ED ATTESTATION NOTE: I examined this patient and my medical decision-making was reviewed with the Resident Physician/KITCHEN HELPER/PA/Student. I have personally performed a face to face evaluation on this patient & I agree with the documented findings, disposition and treatment plan as described except to the extent set forth below. Patient was seen with emergency medicine resident Janette Luciano please see copy of her note for details of this encounter Briefly: 69-year-old male by EMS for "heat stroke". Patient was at a flea market was very hot and humid outside day he was wearing to [place] at the had a cut him off he was profusely sweaty very dry oral mucosa was acting slightly altered Accu-Chek was 154 in field. Patient has some mild tongue fasciculations they said that he had some mild tonic-clonic jerking actions but no true seizure. Patient is currently awake and alert he is dry skin and tachycardic. Patient will be getting liter normal saline IV bolus screening labs EKG. Tox screen ethanol screen and urinalysis. Patient was completely undressed he has been called by passive cooling and will be getting room temperature IV rehydration. Disposition pending Time: 20:14 Vital Signs Temperature 98.4 F 12/19/17 20:06 Pulse Rate 105 12/19/17 20:06 Respiratory Rate 20 12/19/17 20:06 Blood Pressure 124/67 12/19/17 20:06 O2 Sat by Pulse Oximetry 90 12/19/17 20:06 Temperature 98.4 F 12/19/17 20:06 Pulse Rate 105 12/19/17 20:06 Respiratory Rate 20 12/19/17 20:06 Blood Pressure 124/67 12/19/17 20:06 O2 Sat by Pulse Oximetry 90 12/19/17 20:06 Oxygen Delivery Oxygen Delivery Room Air
--- NOTE | 2017-12-19 20:19 | Emergency Department Note ---
Disposition Clinical Impression: Heat exhaustion Qualifiers: Encounter type: initial encounter Qualified Code(s): T67.5XXA - Heat exhaustion , unspecified, initial encounter Disposition: Still a Patient Forms: ED Satisfaction Letter General Adult HPI - General Chief complaint: ED Altered Mental Status Stated complaint: heat stroke Time Seen by Provider: 12/19/17 20:09 Source: patient, EMS Mode of arrival: EMS Limitations: no limitations Nursing Notes Reviewed: Yes Vital Signs Reviewed: Yes - History of Present Illness HPI Narrative: 69-year-old male with unknown past medical history arriving to the emergency department via EMS for chief complaint of altered mental status. According to EMS they were called to a local [employer] where the patient was found lying on a table wearing to winter coats. When they arrived patient was only responsive to pain. Patient was not providing them with any medical history. Patient first arrived here he had already received a 1 L fluid bolus. Patient responded with his name and date of . He states he does not know what he was doing at the [employer]. He denies any chest pain or shortness of breath. Denies abdominal pain. The patient is poor historian. Pain Scale: 0 - Related Data Home Medications Medication Instructions Recorded Confirmed Aricept 10 mg PO DAILY 02/04/17 02/04/17 Aspirin [Lo-Dose Aspirin EC] 81 mg PO DAILY 02/04/17 02/04/17 Fluticasone Propionate 50 mcg NS DAILY 02/04/17 02/04/17 Folic Acid 1 mg PO DAILY 02/04/17 02/04/17 Lisinopril 5 mg PO DAILY 02/04/17 02/04/17 Magnesium 250 mg PO DAILY 02/04/17 02/04/17 Mucinex 600 mg PO Q12HR 02/04/17 02/04/17 Niaspan 1,000 mg PO QPM 02/04/17 02/04/17 Nitroglycerin [Nitrostat] 0.4 mg SL PRN PRN 02/04/17 02/04/17 Omeprazole 40 mg PO DAILY 02/04/17 02/04/17 Plavix 37.5 mg PO DAILY 02/04/17 02/04/17 Simvastatin 40 mg PO DAILY 02/04/17 02/04/17 Symbicort 160/4.5 02/04/17 Previous Rx's Medication Instructions Recorded Ipratropium/Albuterol Neb [Duoneb] 3 ml IH [id number] PRN inhsol 02/08/17 Nicotine Patch [Nicoderm] 7 mg TD DAILY PRN patch.td24 02/08/17 Allergies Allergy/AdvReac Type Severity Reaction Status Date / Time No Known Allergies Allergy Verified 05/22/15 22:28 Limitations: ROS unobtainable due to patients medical condition Past Medical History - Past Medical History Medical history: Reports: non-contributory Surgical history: Reports: angioplasty/stent (x5) Psychiatric history: Reports: no psych history - Social History Smoking Status: Current every day smoker Smokeless Tobacco Status: No Alcohol use: Reports: none Drug use: Reports: none Physical Exam - General Limitations: no limitations General appearance: lethargic - Head Head exam: atraumatic, normocephalic, normal inspection - Eye Eye exam: Present: normal appearance, miosis. Absent: scleral icterus, conjunctival injection - ENT ENT exam: mucous membranes dry - Neck Neck exam: Present: normal inspection. Absent: tenderness, meningismus - Chest Chest inspection: Present: normal inspection, symmetric chest wall rise. Absent : tenderness, rash - Respiratory Respiratory exam: Present: normal lung sounds bilaterally. Absent: respiratory distress, wheezes - Cardiovascular Cardiovascular exam: Present: normal rhythm, tachycardia, normal heart sounds - Abdominal Exam Abdominal exam: Present: soft, Non-Tender. Absent: distention, guarding, rebound - Extremities Exam Extremities exam: Present: other (3+ pitting edema bilateral lower extremities) - Neurological Exam Neurological exam: Present: alert - Skin Skin exam: Present: warm Course Course Narrative: 77-year-old male presenting for altered mental status. Upon arrival patient is alert and is able to tell us his name and date of . He has fasciculations noted on the tongue and is very dry mucous membranes. He is mildly tachycardic. No other abnormal findings on physical exam. Due to patient's altered mental status obtain basic laboratory analysis along with a CT of the head, chest x-ray and EKG. We will provide him with another liter of fluid. Disposition pending results. Patient agrees with this plan. - Reevaluation(s) Reevaluation #1: Patient's coags and CBC back and are unremarkable. Other labs and imaging pending at this time. At this time I WILL sign the patient out to my attending Dr. Olmos for further disposition and management. Patient agrees with this plan. Patient's vital signs stable. Vital Signs Temperature 98.4 F 12/19/17 20:06 Pulse Rate 105 12/19/17 20:06 Respiratory Rate 20 12/19/17 20:06 Blood Pressure 124/67 12/19/17 20:06 O2 Sat by Pulse Oximetry 90 12/19/17 20:06 Temperature 98.4 F 12/19/17 20:06 Pulse Rate 105 12/19/17 20:06 Respiratory Rate 20 12/19/17 20:06 Blood Pressure 124/67 12/19/17 20:06 O2 Sat by Pulse Oximetry 96 12/19/17 20:09 Oxygen Delivery Oxygen Delivery Room Air Medical Decision Making - Lab Data Result diagrams: 12/19/17 20:11 Lab Results 12/19/17 12/19/17 Range/Units 20:11 20:11 WBC 10.1 (4.3-11.1) K/mcL RBC 4.18 L (4.19-5.50) M/mcL Hgb 13.5 (12.9-16.9) g/dL Hct 40.3 (37.5-50.1) % MCV 96.4 (83.0-100.0) fL MCH 32.3 (28.0-33.3) pg MCHC 33.5 (31.6-35.5) g/dL RDW 12.5 (11.5-14.5) % Plt Count 230 (140-400) K/mcL MPV 10.1 (9.4-12.4) fL Immature Gran % 0.4 (0-4) % Seg Neutrophils % 85.5 % Lymphocytes % 7.2 % Monocytes % 6.0 % Eosinophils % 0.7 % Basophils % 0.2 % Neutrophils # 8.7 (1.6-8.9) K/mcL Lymphocytes # 0.7 (0.6-4.6) K/mcL Monocytes # 0.6 (0.0-1.3) K/mcL Eosinophils # 0.1 (0.0-0.6) K/mcL Basophils # 0.0 (0.0-0.2) K/mcL PT 12.6 H (9.4-12.1) Seconds INR 1.1 APTT 28.8 (26.0-36.0) Seconds
[2017-12-19 20:29] LABS: Basophils % 0.2 %; Eosinophils # 0.1 K/mcL (0.0-0.6); Eosinophils % 0.7 %; Hematocrit 40.3 % (37.5-50.1); Hemoglobin 13.5 g/dL (12.9-16.9); Immature Granulocytes % 0.4 % (0-4); Lymphocytes # 0.7 K/mcL (0.6-4.6); Lymphocytes % 7.2 %; Mean Corpuscular HGB Conc 33.5 g/dL (31.6-35.5); Mean Corpuscular Hemoglobin 32.3 pg (28.0-33.3); Mean Corpuscular Volume 96.4 fL (83.0-100.0); Mean Platelet Volume 10.1 fL (9.4-12.4); Monocytes # 0.6 K/mcL (0.0-1.3); Neutrophils # 8.7 K/mcL (1.6-8.9); Platelet Count 230 K/mcL (140-400); Red Blood Count 4.18 M/mcL (4.19-5.50); Red Cell Distribution Width 12.5 % (11.5-14.5); Segmented Neutrophils % 85.5 %
[2017-12-19 20:33] LABS: INR 1.1; Prothrombin Time 12.6 Seconds (9.4-12.1)
[2017-12-19 20:35] LABS: Activated Partial Thrombo Time 28.8 Seconds (26.0-36.0)
[2017-12-19 20:51] LABS: Alanine Aminotransferase 7 Units/L (7-52); Albumin 3.4 g/dL (3.5-5.7); Albumin/Globulin Ratio 1.2 (1.1-2.2); Alkaline Phosphatase 63 Units/L (34-104); Aspartate Amino Transferase 18 Units/L (13-39); BUN/Creatinine Ratio 22 (6-26); Bilirubin,Direct 0.1 mg/dL (0.0-0.2); Bilirubin,Indirect 0.9 mg/dL (0.0-1.2); Blood Urea Nitrogen 20 mg/dL (8-23); Calcium 9.1 mg/dL (8.6-10.3); Carbon Dioxide 24 mEq/L (23-29); Chloride 106 mEq/L (98-107); Ethanol < 10 mg/dL (Less than 10); Globulin 2.9 g/dL (2.4-3.5); Glucose 129 mg/dL (70-105); Osmolality,Calculated 288 (280-300); Potassium 4.1 mEq/L (3.5-5.1); Sodium 137 mEq/L (136-145); Total Protein 6.3 g/dL (6.4-8.9); Troponin I < 0.03 ng/mL (< 0.04); eGFR For Non-African Americans > 60 (> 60)
--- NOTE | 2017-12-19 22:21 | Emergency Department Note ---
Disposition Clinical Impression: Heat exhaustion Qualifiers: Encounter type: initial encounter Qualified Code(s): T67.5XXA - Heat exhaustion , unspecified, initial encounter Altered mental status Qualifiers: Altered mental status type: disorientation Qualified Code(s): R41.0 - Disorientation, unspecified Disposition: Admitted As Inpatient Forms: ED Satisfaction Letter Time of Disposition: 22:21 General Adult HPI - General Chief complaint: ED Altered Mental Status Stated complaint: heat stroke Time Seen by Provider: 12/19/17 20:09 Source: patient, EMS Mode of arrival: EMS Limitations: no limitations - History of Present Illness Pain Scale: 0 - Related Data Home Medications Medication Instructions Recorded Confirmed Aricept 10 mg PO DAILY 02/04/17 02/04/17 Aspirin [Lo-Dose Aspirin EC] 81 mg PO DAILY 02/04/17 02/04/17 Fluticasone Propionate 50 mcg NS DAILY 02/04/17 02/04/17 Folic Acid 1 mg PO DAILY 02/04/17 02/04/17 Lisinopril 5 mg PO DAILY 02/04/17 02/04/17 Magnesium 250 mg PO DAILY 02/04/17 02/04/17 Mucinex 600 mg PO Q12HR 02/04/17 02/04/17 Niaspan 1,000 mg PO QPM 02/04/17 02/04/17 Nitroglycerin [Nitrostat] 0.4 mg SL PRN PRN 02/04/17 02/04/17 Omeprazole 40 mg PO DAILY 02/04/17 02/04/17 Plavix 37.5 mg PO DAILY 02/04/17 02/04/17 Simvastatin 40 mg PO DAILY 02/04/17 02/04/17 Symbicort 160/4.5 02/04/17 Previous Rx's Medication Instructions Recorded Ipratropium/Albuterol Neb [Duoneb] 3 ml IH [id number] PRN inhsol 02/08/17 Nicotine Patch [Nicoderm] 7 mg TD DAILY PRN patch.td24 02/08/17 Allergies Allergy/AdvReac Type Severity Reaction Status Date / Time No Known Allergies Allergy Verified 05/22/15 22:28 Past Medical History - Past Medical History Medical history: Reports: non-contributory Surgical history: Reports: angioplasty/stent (x5) Psychiatric history: Reports: no psych history - Social History Smoking Status: Current every day smoker Smokeless Tobacco Status: No Alcohol use: Reports: none Drug use: Reports: none Physical Exam - General Limitations: no limitations General appearance: lethargic Course - Reevaluation(s) Reevaluation #1: Despite the patient's labs and CT and chest x-ray otherwise been normal patient somewhat acting at baseline appears confused and it or stand steadily. Discussed the case with the hospitalist patient was accepted for admission in stable condition possible did request that I give the patient additional 1 L normal saline bolus and obtain a CPK to exclude the possibility of occult rhabdomyolysis. Patient be admitted in stable condition provided a total of 45 minutes critical care service for this patient Time: 22:20 Vital Signs Temperature 98.4 F 12/19/17 20:06 Pulse Rate 105 12/19/17 20:06 Respiratory Rate 20 12/19/17 20:06 Blood Pressure 124/67 12/19/17 20:06 O2 Sat by Pulse Oximetry 90 12/19/17 20:06 Temperature 98.4 F 12/19/17 20:06 Pulse Rate 91 12/19/17 21:15 Respiratory Rate 20 12/19/17 20:06 Blood Pressure 96/60 12/19/17 21:15 O2 Sat by Pulse Oximetry 96 12/19/17 21:15 Oxygen Delivery Oxygen Delivery Room Air Medical Decision Making - Lab Data Result diagrams: 12/19/17 20:11 12/19/17 20:11 Lab Results 12/19/17 12/19/17 12/19/17 Range/Units 20:11 20:11 20:11 WBC 10.1 (4.3-11.1) K/mcL RBC 4.18 L (4.19-5.50) M/mcL Hgb 13.5 (12.9-16.9) g/dL Hct 40.3 (37.5-50.1) % MCV 96.4 (83.0-100.0) fL MCH 32.3 (28.0-33.3) pg MCHC 33.5 (31.6-35.5) g/dL RDW 12.5 (11.5-14.5) % Plt Count 230 (140-400) K/mcL MPV 10.1 (9.4-12.4) fL Immature Gran % 0.4 (0-4) % Seg Neutrophils % 85.5 % Lymphocytes % 7.2 % Monocytes % 6.0 % Eosinophils % 0.7 % Basophils % 0.2 % Neutrophils # 8.7 (1.6-8.9) K/mcL Lymphocytes # 0.7 (0.6-4.6) K/mcL Monocytes # 0.6 (0.0-1.3) K/mcL Eosinophils # 0.1 (0.0-0.6) K/mcL Basophils # 0.0 (0.0-0.2) K/mcL PT 12.6 H (9.4-12.1) Seconds INR 1.1 APTT 28.8 (26.0-36.0) Seconds Sodium 137 (136-145) mEq/L Potassium 4.1 (3.5-5.1) mEq/L Chloride 106 (98-107) mEq/L Carbon Dioxide 24 (23-29) mEq/L BUN 20 (8-23) mg/dL Creatinine 0.93 (0.70-1.30) mg/dL Est GFR ( Amer) > 60 (> 60) Est GFR (Non-Af Amer) > 60 (> 60) BUN/Creatinine Ratio 22 (6-26) Glucose 129 H (70-105) mg/dL Calculated Osmolality 288 (280-300) Calcium 9.1 (8.6-10.3) mg/dL Total Bilirubin 1.0 (0.3-1.0) mg/dL Direct Bilirubin 0.1 (0.0-0.2) mg/dL Indirect Bilirubin 0.9 (0.0-1.2) mg/dL AST 18 (13-39) Units/L ALT 7 (7-52) Units/L Alkaline Phosphatase 63 (34-104) Units/L Troponin I < 0.03 (< 0.04) ng/mL Serum Total Protein 6.3 L (6.4-8.9) g/dL Albumin 3.4 L (3.5-5.7) g/dL Globulin 2.9 (2.4-3.5) g/dL Albumin/Globulin Ratio 1.2 (1.1-2.2) Ur Drug Screen Interp Ethyl Alcohol < 10 (Less than 10) mg/dL 12/19/17 Range/Units 20:11 WBC (4.3-11.1) K/mcL RBC (4.19-5.50) M/mcL Hgb (12.9-16.9) g/dL Hct (37.5-50.1) % MCV (83.0-100.0) fL MCH (28.0-33.3) pg MCHC (31.6-35.5) g/dL RDW (11.5-14.5) % Plt Count (140-400) K/mcL MPV (9.4-12.4) fL Immature Gran % (0-4) % Seg Neutrophils % % Lymphocytes % % Monocytes % % Eosinophils % % Basophils % % Neutrophils # (1.6-8.9) K/mcL Lymphocytes # (0.6-4.6) K/mcL Monocytes # (0.0-1.3) K/mcL Eosinophils # (0.0-0.6) K/mcL Basophils # (0.0-0.2) K/mcL PT (9.4-12.1) Seconds INR APTT (26.0-36.0) Seconds Sodium (136-145) mEq/L Potassium (3.5-5.1) mEq/L Chloride (98-107) mEq/L Carbon Dioxide (23-29) mEq/L BUN (8-23) mg/dL Creatinine (0.70-1.30) mg/dL Est GFR ( Amer) (> 60) Est GFR (Non-Af Amer) (> 60) BUN/Creatinine Ratio (6-26) Glucose (70-105) mg/dL Calculated Osmolality (280-300) Calcium (8.6-10.3) mg/dL Total Bilirubin (0.3-1.0) mg/dL Direct Bilirubin (0.0-0.2) mg/dL Indirect Bilirubin (0.0-1.2) mg/dL AST (13-39) Units/L ALT (7-52) Units/L Alkaline Phosphatase (34-104) Units/L Troponin I (< 0.04) ng/mL Serum Total Protein (6.4-8.9) g/dL Albumin (3.5-5.7) g/dL Globulin (2.4-3.5) g/dL Albumin/Globulin Ratio (1.1-2.2) Ur Drug Screen Interp See Below Ethyl Alcohol (Less than 10) mg/dL
[2017-12-19 22:32] LABS: Amphetamine Screen,Urine Negative ng/mL (Cutoff=1000); Barbiturate Screen,Urine Negative ng/mL (Cutoff=200); Benzodiazepines Screen,Urine Negative ng/mL (Cutoff=200); Cannabinoid Screen,Urine Negative ng/mL (Cutoff = 50); Cocaine Screen,Urine Negative ng/mL (Cutoff= 300); Opiate Screen,Urine Negative ng/mL (Cutoff=300); Phencyclidine Screen,Urine Negative ng/mL (Cutoff=25)
[2017-12-19 22:49] LABS: Creatine Kinase 42 Units/L (30-223)
[2017-12-19 23:03] LABS: Bilirubin,Urine Negative (Negative); Blood,Urine Negative (Negative); Clarity,Urine Clear (Clear); Color,Urine Yellow (Yellow); Glucose,Urine (UA) Normal (Normal); Ketones,Urine Negative (Negative); Leukocyte Esterase,Urine Negative (Negative); Nitrite,Urine Negative (Negative); Protein,Urine Trace mg/dL (Neg-Trace); Specific Gravity,Urine 1.017 (1.010-1.025); Urobilinogen,Urine Normal (Normal)
[2017-12-19 23:08] LABS: Bacteria,Urine None Seen per hpf (None-Few); Hyaline Casts,Urine None Seen per lpf (None-Few); Squamous Epithelial Cell,Urine Many per lpf (None-Few); WBC,Urine 0-3 per hpf (0-3)
[2017-12-20] MEDS ORDERED: Acetaminophen 325 MG TABLET PO PRN (03:20)
[2017-12-20] MEDS ORDERED: Naloxone 0.4 MG/ML INJ IVP PRN (03:20)
--- NOTE | 2017-12-20 03:34 | Internal Med History&Physical ---
Date of Encounter: 12/20/17 Time of Encounter: 03:28 Internal Medicine - H&P: HPI Chief complaint: AMS Admitted From: Emergency Dept History of present illness: Mr. Cortez is a 77 year old male with history of dementia who was found at [facility] and brought to ED by EMS for altered mental status. Per ER documentation patient was found leaning over table and wearing two coats. In ED he was mildly tachycardia HR 90 but vital signs have remained stable - received 2 L of fluids. Nurse contacted but she is currently on hospice and not able to provide care for him. He currently denies pain. He is unable to tell me were he was today or why he was at the [facility] but knows that he is at the hospital. In ED: CT head normal, chest X-ray no acute process, UDS negative, UA unimpressive, creatine kinase 42 and all labs normal except for low total protein and albumin. Past Med Surg Social Fam HX - Past Medical History Source: old records reviewed Medical history: non-contributory, COPD, dementia, hyperlipidemia, hypertension Additional medical history: unable to confirm - Past Surgical History Surgical History: angioplasty/stent Additional surgical history: CADIAC STENTS - Social History Smoking Status: Current every day smoker Smokeless Tobacco Status: No Alcohol use: none Drug use: none Internal Medicine - H&P: Meds 3 Allergy/AdvReac Type Severity Reaction Status Date / Time No Known Allergies Allergy Verified 05/22/15 22:28 ROS unobtainable: other All Systems PM: . Review of systems: Unable to obtain due to altered mental status - Constitutional Vitals: Temp Pulse Resp BP Pulse Ox 97.8 F 90 16 120/56 97 12/20/17 00:05 12/20/17 00:05 12/20/17 00:05 12/20/17 00:05 12/20/17 00:05 General appearance: Present: cooperative, A&O X 1, disheveled. Absent: no acute distress, answers questions appropriately Exam: he was drowsy and could not comply with instructions for physical exam due to confusion - Head Head exam: Present: atraumatic, normocephalic - Eye Eye exam: Present: EOMI, PERRL - ENT ENT exam: Present: mucous membranes moist, normal oropharynx - Respiratory Respiratory exam: Present: CTAB. Absent: accessory muscle use, rales, wheezes - Cardiovascular Cardiovascular exam: Present: RRR. Absent: gallop, rubs - GI/Abdominal GI/Abdominal exam: Present: normal bowel sounds. Absent: mass, tenderness - Extremities Exam Extremities exam: Present: full ROM, radial pulses palpable and symmetrical Additional comments: poor feet hygiene, decreased PT and DP pulse bilaterally, pedal edema +1 - Psychiatric Psychiatric exam: Absent: agitated, normal affect, normal mood Additional comments: poor historian, no memory of recent events, unable to recite date or season, sense of humor intact - Skin Skin exam: Present: abrasion, excoriation, warm Internal Med - H&P Results - Labs CBC & Chem 7: 12/19/17 20:11 12/19/17 20:11 - Assessment and plan (1) Altered mental status Current Visit: Yes Status: Acute Assessment and plan: baseline memory loss is unclear but he was admitted for similar event last January - consult vp digital marketing social media and crm - considered ordering ammonia level but documentation from past admits doesn't indicate history of EtOH abuse Qualifiers: Altered mental status type: disorientation Qualified Code(s): R41.0 - Disorientation, unspecified (2) Dementia Current Visit: No Status: Chronic Assessment and plan: from documentation on past visits this is chronic diagnosis but recent baseline is unclear - consult PT/OT to access needs Qualifiers: Dementia type: unspecified type Dementia behavioral disturbance: with behavioral disturbance Qualified Code(s): F03.91 - Unspecified dementia with behavioral disturbance (3) Protein-calorie malnutrition, moderate Current Visit: No Status: Acute Assessment and plan: total protein of 6.3 and albumin of 3.4 with history of malnutrition - order prealbumin - consult nutrition (4) Heat exhaustion Current Visit: Yes Status: Acute Assessment and plan: presume diagnosis made based on mild tachycardia in ED and EMS report of inappropriately dressed for season. Dehydration likely but unknown attribution to altered state. - received 2 liters IVF in ED Qualifiers: Encounter type: initial encounter Qualified Code(s): T67.5XXA - Heat exhaustion, unspecified, initial encounter (5) DVT prophylaxis Current Visit: No Status: Acute Assessment and plan: lovenox - Time Spent With Patient Total time spent is greater than 50% in coordination of care (as documented) at patient's floor/unit and/or counseling patient: Greater than 35 minutes
[2017-12-20] MEDS: *HR* Enoxaparin 40 MG/0.4 ML SYRINGE SQ SCH (05:27)
--- NOTE | 2017-12-20 08:27 | Event Note ---
Date of Encounter: 12/20/17 Time of Encounter: 08:15 Subjective: CC: Altered Mental Status HPI: 77 y/o male brought to ED due to altered mental status. Patient was [place] in a flea market wearing two winter coats. Pt not oriented to time, place, or his current situation. Pt could not remember his birthday. Given 2L of fluids. contacted, however, she is in hospice. He does not have any pain or complaints. In ED his head CT, chest x-ray, UDS, UA were all unremarkable. Pt has low total protein and low albumin. Since admission, pt has not had any remarkable events. Pt has been sleeping and resting. PMH: Current: no other current problems Past: COPD, dementia, hyperlipidemia, HTN PSH: angioplasty/stent Meds: Acetaminophen (Tylenol) 650 mg PO Q6HR PRN Enoxaparin Sodium (Lovenox) 40 mg SQ 0600 ARNOLD Naloxone (Narcan) 0.4 mg SQ 0600 ARNOLD (patch worker in process of determing what other meds pt currently takes) ALL: NKDA SH: current smoker, no alcohol or drug santiago FH: couldn't obtain information from patient ROS: no chest pain, no SOB, no abdominal pain Objective: General Appearance:Present: cooperative, A&O X 1, disheveled. Absent: no acute distress, answers questions appropriately Vitals: 98.1 105/54 83 14 96% PE: he was drowsy and could not comply with instructions for physical exam due to confusion - Head Head exam: Present: atraumatic, normocephalic - Respiratory Respiratory exam: Present: CTAB. Absent: accessory muscle use, rales, wheezes - Cardiovascular Cardiovascular exam: Present: RRR. Absent: gallop, rubs - GI/Abdominal GI/Abdominal exam: No abdominal pain. Absent: mass, tenderness - Psychiatric Psychiatric exam: Absent: agitated, normal affect, normal mood Additional comments: poor historian, no memory of recent events, unable to recite date or season, sense of humor intact - Skin Skin exam: Present: abrasion, excoriation, warm - Labs CBC & Chem 7: WBC: 10.1 Hb.5 Hct: 40.3 Plt: 230 Na 137 K 4.1 Cl 106 HCO3 24 BUN 20 Cr 0.93 Glu 129 Assessment & Plan: (1) Altered mental status - Could not obtain pt's baseline memory/functioning, currently A&O x1 - Consulted older adult social work specialist - will reconcile meds list, assess pt's living situation and point of care - plan to establish discharge destination (2) Heat exhaustion - Current Visit: Yes Status: Acute - presume diagnosis made based on mild tachycardia in ED and EMS report of inappropriately dressed for season. Dehydration likely but unknown attribution to altered state. - received 2 liters IVF in ED this morning - pt is no longer tachycardic, fluid status normal
--- NOTE | 2017-12-20 17:09 | Event Note ---
Date of Encounter: 12/20/17 Time of Encounter: 10:00 I have seen and examined this pt independently. I have discussed with resident physician Dr Hernandez regarding the management plan. Please see resident/ medical student note for detail plan.
[2017-12-20] MEDS ORDERED: Nitroglycerin 0.4 MG TAB.SUBL SL PRN (19:47)
[2017-12-20] MEDS ORDERED: NIACIN 1000 MG PO SCH (21:00)
[2017-12-20] MEDS: traZODone 50 MG TABLET PO PRN (21:01)
[2017-12-20] MEDS: Mirtazapine 15 MG TABLET PO SCH (21:01)
[2017-12-21] MEDS: *HR* Enoxaparin 40 MG/0.4 ML SYRINGE SQ SCH (06:44)
[2017-12-21 07:03] LABS: Hematocrit 37.3 % (37.5-50.1); Hemoglobin 12.6 g/dL (12.9-16.9); Mean Corpuscular HGB Conc 33.8 g/dL (31.6-35.5); Mean Corpuscular Hemoglobin 32.8 pg (28.0-33.3); Mean Corpuscular Volume 97.1 fL (83.0-100.0); Mean Platelet Volume 10.2 fL (9.4-12.4); Platelet Count 210 K/mcL (140-400); Red Blood Count 3.84 M/mcL (4.19-5.50); Red Cell Distribution Width 12.5 % (11.5-14.5)
[2017-12-21 07:26] LABS: BUN/Creatinine Ratio 18 (6-26); Blood Urea Nitrogen 16 mg/dL (8-23); Calcium 8.5 mg/dL (8.6-10.3); Carbon Dioxide 25 mEq/L (23-29); Chloride 107 mEq/L (98-107); Glucose 87 mg/dL (70-105); Osmolality,Calculated 283 (280-300); Potassium 3.6 mEq/L (3.5-5.1); Sodium 136 mEq/L (136-145); eGFR For Non-African Americans > 60 (> 60)
[2017-12-21] MEDS: Aspirin Enteric Coated 81 MG Tablet PO SCH (08:13)
--- NOTE | 2017-12-21 10:16 | Internal Med Progress Note ---
<Benjamin Tsai U - Last Filed: 12/21/17 11:14> Hospitalist Progress Note - Encounter Date of Encounter: 12/21/17 Time of Encounter: 09:35 - Subjective Interval History: 77 y/o male pt was brought to ED for altered mental status. Today patient is A& Ox3 but has been alternating between periods of altered mental status. Does not know why he is in the hospital but realizes he is in the hospital. Patient knows the year, answers all questions appropriately. Waiting on social work program coordinator to submit Medicaid application with help of his . PMH: Current: no other current problems Past: COPD, dementia, hyperlipidemia, HTN PSH: angioplasty/stent Meds: Acetaminophen (Tylenol) 650 mg PO Q6HR PRN Enoxaparin Sodium (Lovenox) 40 mg SQ 0600 ARNOLD Naloxone (Narcan) 0.4 mg SQ 0600 ARNOLD (sanitation worker in process of determing what other meds pt currently takes) ALL: NKDA SH: current smoker, no alcohol or drug santiago FH: couldn't obtain information from patient ROS: no chest pain, no SOB, no abdominal pain - Exam Vitals: Temp Pulse Resp BP Pulse Ox 98.0 F 64 18 116/70 93 12/21/17 07:22 12/21/17 07:22 12/21/17 07:22 12/21/17 07:22 12/21/17 08:19 Exam: Pt answered questions lethargically but appropriate. A&Ox3, patient knew where he was and what year it was. Normal heart rate and rhythm, bilateral pulses present. Heart rate and rhythm normal Clear lung sounds bilaterally Bilateral pulses present 2+ pitting edema lower extremities bilaterally abdomen soft, non-tender - Assessment and Plan (1) Altered mental status Current Visit: Yes Status: Acute Assessment and Plan: Secondary to heat exhaustion. Pt was given 2 liters of IV fluid yesterday morning. - pt no longer tachycardic, fluid status normal - A&Ox3 now, patient alert, answers questions, knows date and where he is, however his mental status is labile - waiting on social work program coordinator to complete medicaid application and wait for approval to facility to discharge - pt has baseline dementia (2) Heat exhaustion Current Visit: Yes Status: Resolved Assessment and Plan: - Current Visit: Yes Status: Acute - presume diagnosis made based on mild tachycardia in ED and EMS report of inappropriately dressed for season. Dehydration likely but unknown attribution to altered state. - received 2 liters IVF in ED yesterday morning - pt is no longer tachycardic, fluid status normal - Time Spent with Patient Total time spent is greater than 50% in coordination of care (as documented) at patient's floor/unit and/or counseling patient: Plan of Care Discussed with: patient Internal Medicine: Result - Labs CBC & Chem 7: 12/21/17 06:24 12/21/17 06:24 Labs: Short CBC 12/21/17 Range/Units 06:24 WBC 9.2 (4.3-11.1) K/mcL Hgb 12.6 L (12.9-16.9) g/dL Hct 37.3 L (37.5-50.1) % Plt Count 210 (140-400) K/mcL BMP 12/21/17 06:24 Sodium 136 Potassium 3.6 Chloride 107 Carbon Dioxide 25 BUN 16 Creatinine 0.89 Glucose 87 Calcium 8.5 L - ABG Interpretation ABG results: PT/INR, D-dimer PT 12.6 Seconds (9.4-12.1) H 12/19/17 20:11 Consult Discharge Plan - Plan Referrals: Eleazar Lerma Jr, MD [Primary Care Provider] - <Maria Treviño - Last Filed: 12/21/17 12:39> Hospitalist Progress Note - Encounter Date of Encounter: 12/21/17 - Exam Vitals: Temp Pulse Resp BP Pulse Ox 98.0 F 64 18 116/70 93 12/21/17 07:22 12/21/17 07:22 12/21/17 07:22 12/21/17 07:22 12/21/17 08:19 - Time Spent with Patient Total time spent is greater than 50% in coordination of care (as documented) at patient's floor/unit and/or counseling patient: Internal Medicine: Result - Labs CBC & Chem 7: 12/21/17 06:24 12/21/17 06:24 Labs: Short CBC 12/21/17 Range/Units 06:24 WBC 9.2 (4.3-11.1) K/mcL Hgb 12.6 L (12.9-16.9) g/dL Hct 37.3 L (37.5-50.1) % Plt Count 210 (140-400) K/mcL BMP 12/21/17 06:24 Sodium 136 Potassium 3.6 Chloride 107 Carbon Dioxide 25 BUN 16 Creatinine 0.89 Glucose 87 Calcium 8.5 L - ABG Interpretation ABG results: PT/INR, D-dimer PT 12.6 Seconds (9.4-12.1) H 12/19/17 20:11 - Attending Attestation I have seen and examined this patient independently. I have discussed with medical student regarding the management plan. Agree with the documentation. <Benjamin Tsai U - Last Filed: 12/21/17 11:14> (1) Altered mental status Qualifiers: Altered mental status type: disorientation Qualified Code(s): R41.0 - Disorientation, unspecified (2) Heat exhaustion Qualifiers: Encounter type: initial encounter Qualified Code(s): T67.5XXA - Heat exhaustion, unspecified, initial encounter
[2017-12-21] MEDS ORDERED: *HR* Enoxaparin 40 MG/0.4 ML SYRINGE SQ ONE (12:29)
--- NOTE | 2017-12-21 12:33 | Event Note ---
Date of Encounter: 12/21/17 Time of Encounter: 12:30 Doppler US shows positive for DVT on Rt LE. Pt has received lovenox 40 mg sc this am, will give another 40mg sc stat once and start 90mg sc q12 hr start from 6pm. Consult hematology for further management.
[2017-12-21 14:03] LABS: VBG Ionized Calcium 1.17 mmol/L (1.15-1.35)
--- NOTE | 2017-12-21 14:34 | Oncology Inp Consult Note ---
Addendum entered and electronically signed by Maggie Bowles CNP 12/21/17 18:33 : Patient was seen by Dr. Duran. Recommendation for anticoagulation:1. Xarelto 15 mg PO bid for 21 days then 20 mg daily if his insurance will cover. 2. Lovenox bridge to coumadin if insurance will not cover xarelto. 3. He will need assistance from licensed clinical social worker regarding coverage of medications and home situation. He may need an environment with supervised care secondary to dementia/Alzheimer's and health status of and current living situation. Original Note: <Maggie Bowles - Last Filed: 12/21/17 15:35> Date of Encounter: 12/21/17 Time of Encounter: 14:30 Assessment and Plan (1) DVT (deep venous thrombosis) Status: Acute Assessment and plan: Pulmonary Doppler reading indicates thrombosis of right lower extremity. Lovenox has been initiated. We will obtain d-dimer. This appears to be an unprovoked thrombosis. Past history negative for clotting disorder. In most situations the patient will be on anticoagulation for at least least 3 months and will then have further assessment. This is a difficult situation the patient has dementia/Alzheimer's. His with whom he is living is also ill and is currently in hospice. Dr. Duran will also see this patient for further recommendations on anticoagulation. Qualifiers: DVT location: lower extremity Affected thrombotic vein of extremity: unspecified vein of extremity Chronicity: acute Laterality: right Qualified Code(s): I82.401 - Acute embolism and thrombosis of unspecified deep veins of right lower extremity (2) Tobacco dependence Status: Chronic Assessment and plan: Patient has no intentions on stopping smoking. - Data of Consult Patient: new to practice Consult date: 12/21/17 Requesting Physician: Maria Treviño MD Primary Care Provider: Eleazar Lerma Jr, MD - Consult Narrative Reason for consult: DVT RLE History of present illness: Mr. Cortez is a 77 year old male with a past medical history of COPD, dementia/ Alzheimer's disease, hyperlipidemia, hypertension, CAD, chronic smoker, and low back pain. He was recently admitted to [facility] through emergency room. [place] and brought to the ED per EMS for altered mental status. Per emergency department documentation he was found leaning over a table and wearing 2 coats. He has had a CT of the head which is normal, chest x-ray that showed no acute process. Urinalysis was negative. Toxicology study was also negative. We have been asked to see the patient secondary to positive Doppler study to the right lower extremity. His is with him at this time. She states that he has had swelling and discomfort in the right leg for which 2 weeks. She denies that he has had clotting problems or thrombus in the past however she states that he has had both brothers and sisters who have had clotting disorders. She also states that his parents had blood clots. He has never been on anticoagulation however he was on Plavix following angioplasty with stent placement and is currently on baby aspirin. Today Lovenox was started. Hematology has been asked to evaluate the patient make further recommendations for anticoagulation. Past Med Surg Social Fam HX - Past Medical History Medical history: non-contributory, COPD, dementia, hyperlipidemia, hypertension , myocardial infarction Additional medical history: unable to confirm Psychiatric history: no psych history - Past Surgical History Surgical History: angioplasty/stent Additional surgical history: CADIAC STENTS - Social History Smoking Status: Current every day smoker Smokeless Tobacco Status: No Alcohol use: none Drug use: none Medications and Allergies Aspirin [Lo-Dose Aspirin EC] 81 mg PO DAILY 12/20/17 [History] Clopidogrel [Plavix] 75 mg PO DAILY 12/20/17 [History] Donepezil [Aricept] 10 mg PO HS 12/20/17 [History] Guaifenesin [Mucinex] 600 mg PO BID PRN 12/20/17 [History] Lisinopril [Zestril] 5 mg PO DAILY 12/20/17 [History] Memantine HCl 10 mg PO BID 12/20/17 [History] Mirtazapine [Remeron] 15 mg PO HS 12/20/17 [History] Niacin [Niaspan] 1,000 mg PO HS 12/20/17 [History] Nitroglycerin [Nitrostat] 0.4 mg SL Q5M PRN 12/20/17 [History] Omeprazole [PriLOSEC] 40 mg PO DAILY 12/20/17 [History] Simvastatin [Zocor] 40 mg PO HS 12/20/17 [History] Trazodone HCl 50 mg PO HS PRN 12/20/17 [History] 3 Allergy/AdvReac Type Severity Reaction Status Date / Time No Known Allergies Allergy Verified 05/22/15 22:28 ROS unobtainable: other (Patient has dementia and has difficult time remembering his past history. His was present during the visit and did answer most questions.) Constitutional: Present: other (Memory difficulties) Ears: Present: decreased hearing Cardiovascular: Present: leg edema (Right greater than left). Absent: chest pain, chest pain at rest, chest pain with activity Respiratory: Absent: dyspnea Gastrointestinal: Absent: abdominal pain, bloating, change in bowel habits, constipation, diarrhea, melena Musculoskeletal: Present: back pain (Ongoing for many years) Neurological: Present: confusion, memory loss (Patient thinks it is the month in February, he does not recall being at the [employer] prior to hospitalization) Psychiatric: Present: confusion, difficulty concentrating, memory loss Oncology - Exam - Constitutional Vitals: Temp Pulse Resp BP Pulse Ox 98.0 F 64 18 116/70 93 12/21/17 07:22 12/21/17 07:22 12/21/17 07:22 12/21/17 07:22 12/21/17 08:19 General appearance: average body habitus, cooperative - Head Head exam: Present: normal inspection - Eye Eye exam: Present: normal appearance - ENT ENT exam: Present: mucous membranes moist, normal external ear exam - Neck Neck exam: Present: normal inspection - Respiratory Respiratory exam: Present: CTAB - Cardiovascular Cardiovascular exam: Present: RRR - GI/Abdominal GI/Abdominal exam: Present: normal bowel sounds, soft - Extremities Exam Extremities exam: Present: pedal edema - Back Exam Back exam: Present: normal inspection - Neurological Exam Neurological exam: Present: altered - Psychiatric Psychiatric exam: Present: flat affect - Skin Skin exam: Present: dry, intact, normal color Oncology - Results Labs: 3 12/21/17 12/21/17 12/21/17 13:59 06:24 06:24 WBC 9.2 RBC 3.84 L Hgb 12.6 L Hct 37.3 L MCV 97.1 MCH 32.8 MCHC 33.8 RDW 12.5 Plt Count 210 MPV 10.2 Sodium 136 Potassium 3.6 Chloride 107 Carbon Dioxide 25 BUN 16 Creatinine 0.89 Est GFR ( Amer) > 60 Est GFR (Non-Af Amer) > 60 BUN/Creatinine Ratio 18 Glucose 87 POC Glucose Calculated Osmolality 283 Calcium 8.5 L Venous Ioniz Calcium 1.17 Prealbumin 3 12/20/17 12/20/17 06:44 00:03 WBC RBC Hgb Hct MCV MCH MCHC RDW Plt Count MPV Sodium Potassium Chloride Carbon Dioxide BUN Creatinine Est GFR ( Amer) Est GFR (Non-Af Amer) BUN/Creatinine Ratio Glucose POC Glucose 112 H Calculated Osmolality Calcium Venous Ioniz Calcium Prealbumin 19.4 Consult Discharge Plan - Plan Referrals: Eleazar Lerma Jr, MD [Primary Care Provider] - <Avel Duran - Last Filed: 12/21/17 22:34> Date of Encounter: 12/21/17 - Data of Consult Requesting Physician: Maria Treviño MD Primary Care Provider: Eleazar Lerma Jr, MD - Consult Narrative History of present illness: Mr. Cortez is a 77 year old male Oncology - Exam - Constitutional Vitals: Temp Pulse Resp BP Pulse Ox 97.6 F 72 17 148/81 98 12/21/17 19:30 12/21/17 19:30 12/21/17 19:30 12/21/17 19:30 12/21/17 19:30 Oncology - Results Labs: 3 12/21/17 12/21/17 12/21/17 15:55 13:59 06:24 WBC RBC Hgb Hct MCV MCH MCHC RDW Plt Count MPV D-Dimer 2044 H Sodium 136 Potassium 3.6 Chloride 107 Carbon Dioxide 25 BUN 16 Creatinine 0.89 Est GFR ( Amer) > 60 Est GFR (Non-Af Amer) > 60 BUN/Creatinine Ratio 18 Glucose 87 POC Glucose Calculated Osmolality 283 Calcium 8.5 L Venous Ioniz Calcium 1.17 Prealbumin 3 12/21/17 12/20/17 12/20/17 06:24 06:44 00:03 WBC 9.2 RBC 3.84 L Hgb 12.6 L Hct 37.3 L MCV 97.1 MCH 32.8 MCHC 33.8 RDW 12.5 Plt Count 210 MPV 10.2 D-Dimer Sodium Potassium Chloride Carbon Dioxide BUN Creatinine Est GFR ( Amer) Est GFR (Non-Af Amer) BUN/Creatinine Ratio Glucose POC Glucose 112 H Calculated Osmolality Calcium Venous Ioniz Calcium Prealbumin 19.4 - Attending Attestation I have seen and examined Mr. Cortez and agree with Ms. Bowles's assessment. He has an acute DVT. Anticoagulation is recommended. Would assess for insurance coverage of Xarelto 15 mg bid x 21 days then 20 mg daily thereafter. Otherwise would pursue lovenox bridge with coumadin. Thrombophilia testing not beneficial or warranted. Given unprovoked nature of event, lifelong anticoagulation will likely be considered. Significant dementia present. Will need assessment for possible SNF placement/home health. He may f/u with his PCP regarding his DVT or with hematology. We will otherwise sign off. Inpatient Charges Provider: Dr. Quinn Duran Consult Charges: 12676
[2017-12-21] MEDS: *HR* Enoxaparin 100 MG/ML SYRINGE SQ SCH (17:16)
[2017-12-21] MEDS: Mirtazapine 15 MG TABLET PO SCH (22:07)
[2017-12-21] MEDS: traZODone 50 MG TABLET PO PRN (22:08)
[2017-12-22] MEDS: *HR* Enoxaparin 100 MG/ML SYRINGE SQ SCH ×2 (05:50→17:18)
--- NOTE | 2017-12-22 08:57 | Internal Med Progress Note ---
Hospitalist Progress Note - Encounter Date of Encounter: 12/22/17 Time of Encounter: 08:57 - Subjective Interval History: Patient seen and examined this morning No acute events overnight Patient has no complaints this morning and denies chest pain or shortness of breath - Exam Vitals: Temp Pulse Resp BP Pulse Ox 98.1 F 66 16 166/74 97 12/22/17 06:56 12/22/17 06:56 12/22/17 06:56 12/22/17 06:56 12/22/17 06:56 - Time Spent with Patient Total time spent is greater than 50% in coordination of care (as documented) at patient's floor/unit and/or counseling patient: Internal Medicine: Result - Labs CBC & Chem 7: 12/21/17 06:24 12/21/17 06:24 - ABG Interpretation ABG results: PT/INR, D-dimer PT 12.6 Seconds (9.4-12.1) H 12/19/17 20:11 D-Dimer 2044 ng/mLFEU (0-500) H 12/21/17 15:55 Consult Discharge Plan - Plan Referrals: Eleazar Lerma Jr, MD [Primary Care Provider] -
[2017-12-22 09:11] LABS: Basophils % 0.3 %; Eosinophils # 0.2 K/mcL (0.0-0.6); Eosinophils % 2.1 %; Hematocrit 39.8 % (37.5-50.1); Hemoglobin 13.6 g/dL (12.9-16.9); Immature Granulocytes % 0.3 % (0-4); Lymphocytes # 1.5 K/mcL (0.6-4.6); Lymphocytes % 19.8 %; Mean Corpuscular HGB Conc 34.2 g/dL (31.6-35.5); Mean Corpuscular Hemoglobin 32.7 pg (28.0-33.3); Mean Corpuscular Volume 95.7 fL (83.0-100.0); Mean Platelet Volume 10.4 fL (9.4-12.4); Monocytes # 0.7 K/mcL (0.0-1.3); Monocytes % 8.8 %; Neutrophils # 5.4 K/mcL (1.6-8.9); Platelet Count 226 K/mcL (140-400); Red Blood Count 4.16 M/mcL (4.19-5.50); Red Cell Distribution Width 12.5 % (11.5-14.5); Segmented Neutrophils % 68.7 %
--- NOTE | 2017-12-22 10:10 | Internal Med Progress Note ---
<Benjamin Tsai U - Last Filed: 12/22/17 11:20> Hospitalist Progress Note - Encounter Date of Encounter: 12/22/17 Time of Encounter: 09:20 - Subjective Interval History: 77 y/o male pt was brought to ED for altered mental status. Yesterday pt had right leg pain, venous US showed lower extremity DVT. Consulted Heme, Lovenox started, waiting on sexual assault social worker to finalize insurance problem to determine if pt needs to continue Lovenox or can D/C it and stgart Xarelto. Today patient is A&Ox2 but has been alternating between periods of altered mental status. Does not know why he is in the hospital but realizes he is in the hospital. Today pt does not know year or president. Questions appropriately answered intermittently. Waiting on criminal justice social worker to submit Medicaid application with help of his . PMH: Current: Right Lower extremity DVT Past: COPD, dementia, hyperlipidemia, HTN PSH: angioplasty/stent Meds: Acetaminophen (Tylenol) 650 mg PO Q6HR PRN Enoxaparin Sodium (Lovenox) 40 mg SQ 0600 ARNOLD Naloxone (Narcan) 0.4 mg SQ 0600 ARNOLD (early childhood worker in process of determing what other meds pt currently takes) ALL: NKDA SH: current smoker, no alcohol or drug santiago FH: clotting disorders ROS: no chest pain, no SOB, no abdominal pain - Exam Vitals: Temp Pulse Resp BP Pulse Ox 98.1 F 66 16 166/74 97 12/22/17 06:56 12/22/17 06:56 12/22/17 06:56 12/22/17 06:56 12/22/17 06:56 Exam: Pt answered questions lethargically but appropriate intermittently. A&Ox2, patient knew where he was but not the year or the president. Pt's altered mental status is labile. Heart rate and rhythm normal, irregular intermittently Clear lung sounds bilaterally Bilateral pulses present, irregular intermittently 2+ pitting edema lower extremities bilaterally abdomen soft, non-tender - Assessment and Plan (1) Altered mental status Current Visit: Yes Status: Acute Assessment and Plan: Secondary to heat exhaustion. Pt was given 2 liters of IV fluid morning of 12/20. - pt no longer tachycardic, fluid status normal - A&Ox2 now, patient alert, answers questions, does not know date but knows where he is, however his mental status is labile - waiting on criminal justice social worker to determine insurance and complete medicaid application and wait for approval to facility to discharge - pt has baseline dementia (2) Right leg DVT Current Visit: Yes Status: Acute Assessment and Plan: Pt had right leg pain, venous US showed LE DVT Plan: -consulted heme -currently patient on Lovenox -waiting on sexual assault social worker to figure out pt insurance problem to determine of Lovenox needs to be D/C, and Xarelto started (3) Heat exhaustion Current Visit: Yes Status: Resolved Assessment and Plan: - Current Visit: Yes Status: Acute - presume diagnosis made based on mild tachycardia in ED and EMS report of inappropriately dressed for season. Dehydration likely but unknown attribution to altered state. - received 2 liters IVF in ED morning of 12/20 - pt is no longer tachycardic, fluid status normal - Time Spent with Patient Total time spent is greater than 50% in coordination of care (as documented) at patient's floor/unit and/or counseling patient: Plan of Care Discussed with: patient Internal Medicine: Result - Labs CBC & Chem 7: 12/22/17 08:33 12/21/17 06:24 Labs: Short CBC 12/22/17 Range/Units 08:33 WBC 7.8 (4.3-11.1) K/mcL Hgb 13.6 (12.9-16.9) g/dL Hct 39.8 (37.5-50.1) % Plt Count 226 (140-400) K/mcL Neutrophils # 5.4 (1.6-8.9) K/mcL - ABG Interpretation ABG results: PT/INR, D-dimer PT 12.6 Seconds (9.4-12.1) H 12/19/17 20:11 D-Dimer 2044 ng/mLFEU (0-500) H 12/21/17 15:55 Consult Discharge Plan - Plan Referrals: Eleazar Lerma Jr, MD [Primary Care Provider] - <Maria Treviño - Last Filed: 12/22/17 11:58> Hospitalist Progress Note - Encounter Date of Encounter: 12/22/17 - Exam Vitals: Temp Pulse Resp BP Pulse Ox 98.1 F 66 16 166/74 97 12/22/17 06:56 12/22/17 06:56 12/22/17 06:56 12/22/17 06:56 12/22/17 06:56 - Time Spent with Patient Total time spent is greater than 50% in coordination of care (as documented) at patient's floor/unit and/or counseling patient: Internal Medicine: Result - Labs CBC & Chem 7: 12/22/17 08:33 12/21/17 06:24 Labs: Short CBC 12/22/17 Range/Units 08:33 WBC 7.8 (4.3-11.1) K/mcL Hgb 13.6 (12.9-16.9) g/dL Hct 39.8 (37.5-50.1) % Plt Count 226 (140-400) K/mcL Neutrophils # 5.4 (1.6-8.9) K/mcL - ABG Interpretation ABG results: PT/INR, D-dimer PT 12.6 Seconds (9.4-12.1) H 12/19/17 20:11 D-Dimer 2044 ng/mLFEU (0-500) H 12/21/17 15:55 - Attending Attestation I have seen and examined this pt independently. I have discussed with resident physician Dr. Hernandez and medical student regarding the management plan. Agree with the documentation. <Benjamin Tsai U - Last Filed: 12/22/17 11:20> (1) Altered mental status Qualifiers: Altered mental status type: disorientation Qualified Code(s): R41.0 - Disorientation, unspecified (3) Heat exhaustion Qualifiers: Encounter type: initial encounter Qualified Code(s): T67.5XXA - Heat exhaustion, unspecified, initial encounter
[2017-12-22] MEDS: Aspirin Enteric Coated 81 MG Tablet PO SCH (10:24)
[2017-12-22] MEDS: Mirtazapine 15 MG TABLET PO SCH (21:14)
[2017-12-23] MEDS: *HR* Enoxaparin 100 MG/ML SYRINGE SQ SCH (06:04)
[2017-12-23] MEDS: Aspirin Enteric Coated 81 MG Tablet PO SCH (10:30)
--- NOTE | 2017-12-23 10:38 | Electrocardiograph Report ---
[address] [place], [place] [address] Test Date: 2017-12-19 Pat Name: Philippe Cortez Department: [id number] Room: 3B Gender: M [employer] Manager: : 1940 Requested By: Janette Luciano Order Number: [id number] Reading MD: Quentin Lind Measurements Intervals [place] Rate: 107 P: 79 HI: 125 QRS: 82 QRSD: 102 T: -38 QT: 347 QTc: 463 Interpretive Statements Sinus tachycardia Incomplete RBBB Electronically Signed On 12-23-2017 10:36:51 EDT by Quentin Lind
--- NOTE | 2017-12-23 12:57 | Internal Med Progress Note ---
<Benjamin Tsai U - Last Filed: 12/23/17 13:10> Hospitalist Progress Note - Encounter Date of Encounter: 12/23/17 Time of Encounter: 09:00 - Subjective Interval History: Pt did not have any over night events. The patient is A&O x2. He knew the year and the president, but did not know where he was. Labile altered mental status. Pt looks better physically. He no longer has leg pain. SW has tried to get pt insurance, there will be peer to peer between provider and insurance company. - Exam Vitals: Temp Pulse Resp BP Pulse Ox 99.2 F 75 12 99/59 93 12/23/17 07:51 12/23/17 07:51 12/23/17 07:51 12/23/17 07:51 12/23/17 07:51 Exam: Pt answered questions lethargically but appropriate intermittently. A&Ox2, patient knew year and persident, but not where he was. Pt's altered mental status is labile. Heart rate and rhythm normal Clear lung sounds bilaterally Bilateral pulses present 2+ pitting edema lower extremities bilaterally, no tenderness on palpation of LE abdomen soft, non-tender - Assessment and Plan (1) Altered mental status Current Visit: Yes Status: Acute Assessment and Plan: Exacerbated by heat exhaustion at admission. Responded well to fluids, now at baseline dementia. - A&Ox2 now, patient alert, answers questions, does not know date but knows where he is, however his mental status is labile - waiting peer to peer between physician and insurance company and wait for approval to discharge to facility (2) Right leg DVT Current Visit: Yes Status: Acute Assessment and Plan: Pt had right leg pain, venous US showed LE DVT Plan: -consulted heme -D/C Lovenox -Start Xarelto 15 mg PO BID 21 days, 20 mg PO daily afterwards - Time Spent with Patient Total time spent is greater than 50% in coordination of care (as documented) at patient's floor/unit and/or counseling patient: Plan of Care Discussed with: patient Internal Medicine: Result - Labs CBC & Chem 7: 12/22/17 08:33 12/21/17 06:24 - ABG Interpretation ABG results: PT/INR, D-dimer PT 12.6 Seconds (9.4-12.1) H 12/19/17 20:11 D-Dimer 2044 ng/mLFEU (0-500) H 12/21/17 15:55 Consult Discharge Plan - Plan Referrals: Eleazar Lerma Jr, MD [Primary Care Provider] - <HudsonMaria - Last Filed: 12/23/17 14:02> Hospitalist Progress Note - Encounter Date of Encounter: 12/23/17 - Exam Vitals: Temp Pulse Resp BP Pulse Ox 97.9 F 75 12 120/55 95 12/23/17 13:05 12/23/17 13:05 12/23/17 13:05 12/23/17 13:05 12/23/17 13:05 - Time Spent with Patient Total time spent is greater than 50% in coordination of care (as documented) at patient's floor/unit and/or counseling patient: Internal Medicine: Result - Labs CBC & Chem 7: 12/22/17 08:33 12/21/17 06:24 - ABG Interpretation ABG results: PT/INR, D-dimer PT 12.6 Seconds (9.4-12.1) H 12/19/17 20:11 D-Dimer 2044 ng/mLFEU (0-500) H 12/21/17 15:55 - Attending Attestation I have seen and examined this pt independently. I have discussed with resident physician Dr Hernandez and medical student regarding the management plan. Agree with the documentation. <Benjamin Tsai U - Last Filed: 12/23/17 13:10> (1) Altered mental status Qualifiers: Altered mental status type: disorientation Qualified Code(s): R41.0 - Disorientation, unspecified
[2017-12-23] MEDS: *HR* Rivaroxaban 15 MG TABLET PO SCH (17:20)
[2017-12-23] MEDS: Mirtazapine 15 MG TABLET PO SCH (21:22)
[2017-12-24] MEDS: traZODone 50 MG TABLET PO PRN ×2 (04:13→21:31)
[2017-12-24 06:26] LABS: Basophils % 0.4 %; Eosinophils # 0.3 K/mcL (0.0-0.6); Eosinophils % 3.7 %; Hematocrit 36.9 % (37.5-50.1); Hemoglobin 12.5 g/dL (12.9-16.9); Immature Granulocytes % 0.4 % (0-4); Lymphocytes # 1.9 K/mcL (0.6-4.6); Lymphocytes % 23.8 %; Mean Corpuscular HGB Conc 33.9 g/dL (31.6-35.5); Mean Corpuscular Hemoglobin 32.4 pg (28.0-33.3); Mean Corpuscular Volume 95.6 fL (83.0-100.0); Mean Platelet Volume 10.1 fL (9.4-12.4); Monocytes # 0.7 K/mcL (0.0-1.3); Monocytes % 9.5 %; Neutrophils # 4.8 K/mcL (1.6-8.9); Platelet Count 226 K/mcL (140-400); Red Blood Count 3.86 M/mcL (4.19-5.50); Segmented Neutrophils % 62.2 %
[2017-12-24] MEDS: Aspirin Enteric Coated 81 MG Tablet PO SCH (08:55)
[2017-12-24] MEDS: *HR* Rivaroxaban 15 MG TABLET PO SCH ×2 (08:55→17:32)
--- NOTE | 2017-12-24 11:10 | Internal Med Progress Note ---
Hospitalist Progress Note - Encounter Date of Encounter: 12/24/17 Time of Encounter: 09:00 - Subjective Interval History: Patient is stable, no further complaints. All medication is by mouth now. Waiting for insurance approval for further placement. - Exam Vitals: Temp Pulse Resp BP Pulse Ox 97.9 F 95 17 124/77 97 12/24/17 07:00 12/24/17 07:00 12/24/17 07:00 12/24/17 07:00 12/24/17 07:00 Exam: Pt answered questions lethargically but appropriate intermittently. A&Ox2, patient knew year and persident, but not where he was. Pt's altered mental status is labile. Heart rate and rhythm normal Clear lung sounds bilaterally Bilateral pulses present 2+ pitting edema lower extremities bilaterally, no tenderness on palpation of LE abdomen soft, non-tender - Assessment and Plan (1) Right leg DVT Current Visit: Yes Status: Acute Assessment and Plan: Continue xarelto 15mg bid x 21 days, then 20mg po daily. Patient has dementia, need discharge to ECF for supervised medication use. (2) DVT prophylaxis Current Visit: No Status: Acute Assessment and Plan: On xarelto (3) CAD (coronary artery disease) Current Visit: No Status: Chronic Assessment and Plan: Stable. No chest pain. Continue home medications (4) Dementia Current Visit: No Status: Chronic Assessment and Plan: Patient is still disoriented. Need one-to-one sitter at this point. Multiple times lost on street. His is currently in hospice. Nobody at home take care of him. Plan for ECF discharge. Continue home medications for dementia. (5) HTN (hypertension) Current Visit: No Status: Chronic Assessment and Plan: BP is well controlled. Continue home medications. - Time Spent with Patient Total time spent is greater than 50% in coordination of care (as documented) at patient's floor/unit and/or counseling patient: 30 minutes 25 - 35 minutes Internal Medicine: Result - Labs CBC & Chem 7: 12/24/17 05:52 12/21/17 06:24 Labs: Short CBC 12/24/17 Range/Units 05:52 WBC 7.8 (4.3-11.1) K/mcL Hgb 12.5 L (12.9-16.9) g/dL Hct 36.9 L (37.5-50.1) % Plt Count 226 (140-400) K/mcL Neutrophils # 4.8 (1.6-8.9) K/mcL - ABG Interpretation ABG results: PT/INR, D-dimer PT 12.6 Seconds (9.4-12.1) H 12/19/17 20:11 D-Dimer 2044 ng/mLFEU (0-500) H 12/21/17 15:55 Consult Discharge Plan - Plan Referrals: Eleazar Lerma Jr, MD [Primary Care Provider] - (1) Right leg DVT Qualifiers: Affected thrombotic vein of extremity: popliteal Chronicity: acute Qualified Code(s): I82.431 - Acute embolism and thrombosis of right popliteal vein (3) CAD (coronary artery disease) Qualifiers: Coronary Disease-Associated Artery/Lesion type: [place] artery [place] vs. transplanted heart: [place] heart Associated angina: without angina Qualified Code(s): I25.10 - Atherosclerotic heart disease of [place] coronary artery without angina pectoris (4) Dementia Qualifiers: Dementia type: Alzheimer's disease Alzheimer's disease onset: unspecified onset Dementia behavioral disturbance: with behavioral disturbance Qualified Code(s): G30.9 - Alzheimer's disease, unspecified; F02.81 - Dementia in other diseases classified elsewhere with behavioral disturbance (5) HTN (hypertension) Qualifiers: Hypertension type: essential hypertension Qualified Code(s): I10 - Essential (primary) hypertension
[2017-12-24] MEDS: Mirtazapine 15 MG TABLET PO SCH (21:31)
[2017-12-25 04:52] LABS: Basophils % 0.3 %; Eosinophils # 0.3 K/mcL (0.0-0.6); Eosinophils % 2.8 %; Hematocrit 41.7 % (37.5-50.1); Hemoglobin 13.9 g/dL (12.9-16.9); Immature Granulocytes % 0.3 % (0-4); Lymphocytes # 2.3 K/mcL (0.6-4.6); Lymphocytes % 23.4 %; Mean Corpuscular HGB Conc 33.3 g/dL (31.6-35.5); Mean Corpuscular Hemoglobin 32.3 pg (28.0-33.3); Mean Corpuscular Volume 96.8 fL (83.0-100.0); Mean Platelet Volume 9.8 fL (9.4-12.4); Monocytes # 0.8 K/mcL (0.0-1.3); Monocytes % 8.6 %; Neutrophils # 6.2 K/mcL (1.6-8.9); Platelet Count 249 K/mcL (140-400); Red Blood Count 4.31 M/mcL (4.19-5.50); Red Cell Distribution Width 12.8 % (11.5-14.5); Segmented Neutrophils % 64.6 %
[2017-12-25] MEDS: Aspirin Enteric Coated 81 MG Tablet PO SCH (08:41)
[2017-12-25] MEDS: *HR* Rivaroxaban 15 MG TABLET PO SCH ×2 (08:41→17:10)
--- NOTE | 2017-12-25 12:13 | Internal Med Progress Note ---
Hospitalist Progress Note - Encounter Date of Encounter: 12/25/17 Time of Encounter: 09:00 - Subjective Interval History: Patient is stable, no further complaints. Waiting for insurance approval for further placement. - Exam Vitals: Temp Pulse Resp BP Pulse Ox 97.7 F 71 16 117/71 95 12/25/17 12:00 12/25/17 12:00 12/25/17 12:00 12/25/17 12:00 12/25/17 12:00 Exam: Pt answered questions lethargically but appropriate intermittently. A&Ox2, patient knew year and persident, but not where he was. Pt's altered mental status is labile. Heart rate and rhythm normal Clear lung sounds bilaterally Bilateral pulses present 2+ pitting edema lower extremities bilaterally, no tenderness on palpation of LE abdomen soft, non-tender - Assessment and Plan (1) Right leg DVT Current Visit: Yes Status: Acute Assessment and Plan: Continue xarelto 15mg bid x 21 days, then 20mg po daily. Patient has dementia, need discharge to ECF for supervised medication use. (2) DVT prophylaxis Current Visit: No Status: Acute Assessment and Plan: On xarelto (3) CAD (coronary artery disease) Current Visit: No Status: Chronic Assessment and Plan: Stable. No chest pain. Continue home medications (4) Dementia Current Visit: No Status: Chronic Assessment and Plan: Patient is still disoriented. Need one-to-one sitter at this point. Multiple times lost on street. His is currently in hospice. Nobody at home take care of him. Plan for ECF discharge. Continue home medications for dementia. (5) HTN (hypertension) Current Visit: No Status: Chronic Assessment and Plan: BP is well controlled. Continue home medications. - Time Spent with Patient Total time spent is greater than 50% in coordination of care (as documented) at patient's floor/unit and/or counseling patient: 30 minutes 25 - 35 minutes Internal Medicine: Result - Labs CBC & Chem 7: 12/25/17 04:39 12/21/17 06:24 Labs: Short CBC 12/25/17 Range/Units 04:39 WBC 9.6 (4.3-11.1) K/mcL Hgb 13.9 (12.9-16.9) g/dL Hct 41.7 (37.5-50.1) % Plt Count 249 (140-400) K/mcL Neutrophils # 6.2 (1.6-8.9) K/mcL - ABG Interpretation ABG results: PT/INR, D-dimer PT 12.6 Seconds (9.4-12.1) H 12/19/17 20:11 D-Dimer 2044 ng/mLFEU (0-500) H 12/21/17 15:55 Consult Discharge Plan - Plan Referrals: Eleazar Lerma Jr, MD [Primary Care Provider] - (1) Right leg DVT Qualifiers: Affected thrombotic vein of extremity: popliteal Chronicity: acute Qualified Code(s): I82.431 - Acute embolism and thrombosis of right popliteal vein (3) CAD (coronary artery disease) Qualifiers: Coronary Disease-Associated Artery/Lesion type: [place] artery [place] vs. transplanted heart: [place] heart Associated angina: without angina Qualified Code(s): I25.10 - Atherosclerotic heart disease of [place] coronary artery without angina pectoris (4) Dementia Qualifiers: Dementia type: Alzheimer's disease Alzheimer's disease onset: unspecified onset Dementia behavioral disturbance: with behavioral disturbance Qualified Code(s): G30.9 - Alzheimer's disease, unspecified; F02.81 - Dementia in other diseases classified elsewhere with behavioral disturbance (5) HTN (hypertension) Qualifiers: Hypertension type: essential hypertension Qualified Code(s): I10 - Essential (primary) hypertension
[2017-12-25] MEDS: Mirtazapine 15 MG TABLET PO SCH (20:50)
[2017-12-26 06:54] LABS: Basophils % 0.3 %; Eosinophils # 0.3 K/mcL (0.0-0.6); Eosinophils % 2.8 %; Hematocrit 39.3 % (37.5-50.1); Hemoglobin 13.1 g/dL (12.9-16.9); Immature Granulocytes % 0.4 % (0-4); Lymphocytes # 1.6 K/mcL (0.6-4.6); Lymphocytes % 16.1 %; Mean Corpuscular HGB Conc 33.3 g/dL (31.6-35.5); Mean Corpuscular Volume 96.1 fL (83.0-100.0); Mean Platelet Volume 10.3 fL (9.4-12.4); Monocytes % 9.5 %; Neutrophils # 7.1 K/mcL (1.6-8.9); Platelet Count 247 K/mcL (140-400); Red Blood Count 4.09 M/mcL (4.19-5.50); Red Cell Distribution Width 12.9 % (11.5-14.5); Segmented Neutrophils % 70.9 %
[2017-12-26] MEDS: *HR* Rivaroxaban 15 MG TABLET PO SCH ×2 (11:42→17:56)
[2017-12-26] MEDS: Aspirin Enteric Coated 81 MG Tablet PO SCH (11:42)
--- NOTE | 2017-12-26 11:42 | Internal Med Progress Note ---
<Antoine Hernandez - Last Filed: 12/26/17 11:38> Hospitalist Progress Note - Encounter Date of Encounter: 12/26/17 Time of Encounter: 11:39 - Subjective Interval History: Patient seen and examined this morning, no acute events overnight Patient stated he was catching birds this weekend Denied shortness of breath, chest pain, had no other complaints - Exam Vitals: Temp Pulse Resp BP Pulse Ox 97.6 F 56 18 123/75 97 12/26/17 08:00 12/26/17 08:00 12/26/17 08:00 12/26/17 08:00 12/26/17 08:00 Exam: Patient in no acute distress, alert and oriented to person only Heart in regular rate and rhythm without murmur or gallop Lungs clear to auscultation bilaterally without wheeze or rales or rhonchi Abdomen soft and nontender with normal bowel sounds Legs are 1+ edematous, right leg is tender to palpation diffusely Skin warm and dry - Assessment and Plan (1) Dementia Current Visit: No Status: Chronic Assessment and Plan: Patient is alert and oriented to person only however his orientation continues to be labile I suspect this is his baseline dementia, he is otherwise clinically stable Social work has been trying to get the patient insurance that he can be transferred to an extended care facility [id number] was completed by Dr. Treviño and the patient has now been approved for insurance The plan is to discharge tomorrow once social work is back from the holiday (2) Right leg DVT Current Visit: Yes Status: Acute Assessment and Plan: Right leg DVT found after admission Patient is being anticoagulated with Xarelto Now the insurance is approved he will be discharged with Xarelto (3) HTN (hypertension) Current Visit: No Status: Chronic Assessment and Plan: Chronic hypertension managed with home medications Blood pressure currently stable (4) CAD (coronary artery disease) Current Visit: No Status: Chronic Assessment and Plan: Chronic CAD home medications Patient asymptomatic and denies chest pain DVT Prophylaxis: Patient is on Xarelto - Time Spent with Patient Total time spent is greater than 50% in coordination of care (as documented) at patient's floor/unit and/or counseling patient: Internal Medicine: Result - Labs CBC & Chem 7: 12/26/17 05:59 12/21/17 06:24 Labs: Short CBC 12/26/17 Range/Units 05:59 WBC 10.0 (4.3-11.1) K/mcL Hgb 13.1 (12.9-16.9) g/dL Hct 39.3 (37.5-50.1) % Plt Count 247 (140-400) K/mcL Neutrophils # 7.1 (1.6-8.9) K/mcL - ABG Interpretation ABG results: PT/INR, D-dimer PT 12.6 Seconds (9.4-12.1) H 12/19/17 20:11 D-Dimer 2044 ng/mLFEU (0-500) H 12/21/17 15:55 Consult Discharge Plan - Plan Referrals: Eleazar Lerma Jr, MD [Primary Care Provider] - <Maria Treviño - Last Filed: 12/26/17 12:44> Hospitalist Progress Note - Encounter Date of Encounter: 12/26/17 - Exam Vitals: Temp Pulse Resp BP Pulse Ox 97.6 F 56 18 123/75 97 12/26/17 08:00 12/26/17 08:00 12/26/17 08:00 12/26/17 08:00 12/26/17 08:00 - Assessment and Plan (1) Right leg DVT Current Visit: Yes Status: Acute (2) DVT prophylaxis Current Visit: No Status: Acute (3) CAD (coronary artery disease) Current Visit: No Status: Chronic (4) Dementia Current Visit: No Status: Chronic (5) HTN (hypertension) Current Visit: No Status: Chronic - Time Spent with Patient Total time spent is greater than 50% in coordination of care (as documented) at patient's floor/unit and/or counseling patient: Internal Medicine: Result - Labs CBC & Chem 7: 12/26/17 05:59 12/21/17 06:24 Labs: Short CBC 12/26/17 Range/Units 05:59 WBC 10.0 (4.3-11.1) K/mcL Hgb 13.1 (12.9-16.9) g/dL Hct 39.3 (37.5-50.1) % Plt Count 247 (140-400) K/mcL Neutrophils # 7.1 (1.6-8.9) K/mcL - ABG Interpretation ABG results: PT/INR, D-dimer PT 12.6 Seconds (9.4-12.1) H 12/19/17 20:11 D-Dimer 2044 ng/mLFEU (0-500) H 12/21/17 15:55 - Attending Attestation I have seen and examined this patient independently. I have discussed with resident physician Dr. Hernandez regarding the management plan. Agree with the documentation. <Antoine Hernandez - Last Filed: 12/26/17 11:38> (1) Dementia Qualifiers: Dementia type: Alzheimer's disease Alzheimer's disease onset: unspecified onset Dementia behavioral disturbance: with behavioral disturbance Qualified Code(s): G30.9 - Alzheimer's disease, unspecified; F02.81 - Dementia in other diseases classified elsewhere with behavioral disturbance (2) Right leg DVT Qualifiers: Affected thrombotic vein of extremity: popliteal Chronicity: acute Qualified Code(s): I82.431 - Acute embolism and thrombosis of right popliteal vein (3) HTN (hypertension) Qualifiers: Hypertension type: essential hypertension Qualified Code(s): I10 - Essential (primary) hypertension (4) CAD (coronary artery disease) Qualifiers: Coronary Disease-Associated Artery/Lesion type: [place] artery [place] vs. transplanted heart: [place] heart Associated angina: without angina Qualified Code(s): I25.10 - Atherosclerotic heart disease of [place] coronary artery without angina pectoris <Maria Treviño - Last Filed: 12/26/17 12:44> (1) Right leg DVT Qualifiers: Affected thrombotic vein of extremity: popliteal Chronicity: acute Qualified Code(s): I82.431 - Acute embolism and thrombosis of right popliteal vein (3) CAD (coronary artery disease) Qualifiers: Coronary Disease-Associated Artery/Lesion type: [place] artery [place] vs. transplanted heart: [place] heart Associated angina: without angina Qualified Code(s): I25.10 - Atherosclerotic heart disease of [place] coronary artery without angina pectoris (4) Dementia Qualifiers: Dementia type: Alzheimer's disease Alzheimer's disease onset: unspecified onset Dementia behavioral disturbance: with behavioral disturbance Qualified Code(s): G30.9 - Alzheimer's disease, unspecified; F02.81 - Dementia in other diseases classified elsewhere with behavioral disturbance (5) HTN (hypertension) Qualifiers: Hypertension type: essential hypertension Qualified Code(s): I10 - Essential (primary) hypertension
[2017-12-26] MEDS: Mirtazapine 15 MG TABLET PO SCH (20:15)
[2017-12-27 03:38] LABS: Bilirubin,Urine Negative (Negative); Clarity,Urine Cloudy (Clear); Color,Urine Red (Yellow); Glucose,Urine (UA) Normal (Normal); Ketones,Urine Negative (Negative); Specific Gravity,Urine 1.018 (1.010-1.025)
[2017-12-27 03:39] LABS: Blood,Urine Large (Negative); Leukocyte Esterase,Urine Small (Negative); Nitrite,Urine Negative (Negative); Protein,Urine 100 mg/dL (Neg-Trace); Urobilinogen,Urine Normal (Normal)
[2017-12-27 07:18] LABS: Basophils % 0.3 %; Eosinophils # 0.3 K/mcL (0.0-0.6); Eosinophils % 2.2 %; Hematocrit 42.3 % (37.5-50.1); Hemoglobin 14.2 g/dL (12.9-16.9); Immature Granulocytes % 0.3 % (0-4); Lymphocytes # 1.7 K/mcL (0.6-4.6); Mean Corpuscular HGB Conc 33.6 g/dL (31.6-35.5); Mean Corpuscular Hemoglobin 32.4 pg (28.0-33.3); Mean Corpuscular Volume 96.6 fL (83.0-100.0); Mean Platelet Volume 10.3 fL (9.4-12.4); Monocytes % 8.4 %; Neutrophils # 8.5 K/mcL (1.6-8.9); Platelet Count 265 K/mcL (140-400); Red Blood Count 4.38 M/mcL (4.19-5.50); Red Cell Distribution Width 12.8 % (11.5-14.5); Segmented Neutrophils % 73.8 %
[2017-12-27] MEDS ORDERED: cefTRIAXone 1,000 MG in Water for inj. (sterile) 20 ML 10 ML IVP SCH (09:00)
[2017-12-27] MEDS: Aspirin Enteric Coated 81 MG Tablet PO SCH (09:02)
[2017-12-27] MEDS: *HR* Rivaroxaban 15 MG TABLET PO SCH ×2 (09:03→17:48)
[2017-12-27] MEDS ORDERED: cefTRIAXone 1,000 MG in Water for inj. (sterile) 20 ML 10 ML IVP ONE (09:15)
--- NOTE | 2017-12-27 10:18 | Physician Discharge Referral ---
ExtendedCare Referral Info Transfer To: ECF Provider in Charge: Lucas Provider in Charge after Transfer: PCP - Diagnosis (1) HTN (hypertension) Priority: Secondary Status: Chronic (2) CAD (coronary artery disease) Priority: Secondary Status: Chronic (3) Dementia Status: Chronic (4) Right leg DVT Priority: Secondary Status: Acute (5) Altered mental status Priority: Secondary Status: Resolved (6) UTI (urinary tract infection) Priority: Secondary Status: Acute Expected Duration of Placement: greater than 6 months Prognosis: Poor Aware of Diagnosis: Patient - Transfer Medications Home Medications: Aspirin [Lo-Dose Aspirin EC] 81 mg PO DAILY 12/20/17 [History] Clopidogrel [Plavix] 75 mg PO DAILY 12/20/17 [History] Donepezil [Aricept] 10 mg PO HS 12/20/17 [History] Guaifenesin [Mucinex] 600 mg PO BID PRN 12/20/17 [History] Lisinopril [Zestril] 5 mg PO DAILY 12/20/17 [History] Memantine HCl 10 mg PO BID 12/20/17 [History] Mirtazapine [Remeron] 15 mg PO HS 12/20/17 [History] Niacin [Niaspan] 1,000 mg PO HS 12/20/17 [History] Nitroglycerin [Nitrostat] 0.4 mg SL Q5M PRN 12/20/17 [History] Omeprazole [PriLOSEC] 40 mg PO DAILY 12/20/17 [History] Simvastatin [Zocor] 40 mg PO HS 12/20/17 [History] Trazodone HCl 50 mg PO HS PRN 12/20/17 [History] Allergies/Adverse Reactions: 3 Allergy/AdvReac Type Severity Reaction Status Date / Time No Known Allergies Allergy Verified 05/22/15 22:28 - Respiratory Orders Smoking Cessation: Smoking cessation has been advised. For more information, call the [place] Tobacco Quit Line at 8-668-SFGR-NOW. - Ancillary Orders May use pressure relief devices daily prn, May go on DARRYL w/family/respon libertarian w /meds at nurse discretion PRN, May consult with Dentist, Clinical Administrative Coordinator, Acid Mixer PRN - Advance Directives Code Status: Full Code - Mobility Orders Ambulate - Rehabiliation Orders Rehab Potential: Poor Rehab Orders: Evaluation for Physical Therapy, Evaluation for Occupational Therapy - Treatments Skin tear care topically daily PRN per policy, May check for fecal impaction rectally daily PRN, Fleet enema rectally every other day PRN cleansing purposes - Diet Orders Regular House Supplement per Dietary: magic cup with dinner, ensure HP BID CERTIFICATION: I certify that the transfer of the above named patient to an Extended Care Facility is necessary for the continuing treatment of the diagnosis listed. The above information is true and accurate reflection of patient's current condition. Confidential - Redisclosure prohibited without a patient's written consent.
--- NOTE | 2017-12-27 10:25 | Discharge Summary ---
<Calista Cervantes - Last Filed: 12/27/17 10:23> Orders not resulted at time of discharge: Pending orders 12/27/17 02:54 Culture,Urine [RM] Routine Date of Encounter: 12/27/17 Time of Encounter: 09:00 - Discharge Diagnosis (1) HTN (hypertension) Priority: Secondary Status: Chronic Qualifiers: Hypertension type: essential hypertension Qualified Code(s): I10 - Essential (primary) hypertension (2) CAD (coronary artery disease) Priority: Secondary Status: Chronic Qualifiers: Coronary Disease-Associated Artery/Lesion type: [place] artery [place] vs. transplanted heart: [place] heart Associated angina: without angina Qualified Code(s): I25.10 - Atherosclerotic heart disease of [place] coronary artery without angina pectoris (3) Dementia Priority: Secondary Status: Chronic Qualifiers: Dementia type: Alzheimer's disease Alzheimer's disease onset: unspecified onset Dementia behavioral disturbance: with behavioral disturbance Qualified Code(s): G30.9 - Alzheimer's disease, unspecified; F02.81 - Dementia in other diseases classified elsewhere with behavioral disturbance (4) Right leg DVT Priority: Secondary Status: Acute Qualifiers: Affected thrombotic vein of extremity: popliteal Chronicity: acute Qualified Code(s): I82.431 - Acute embolism and thrombosis of right popliteal vein (5) Altered mental status Priority: Primary Status: Resolved (6) UTI (urinary tract infection) Priority: Secondary Status: Acute Hospital course: Mr. Cortez is a 77 year old male Discharge discussed with: patient - Time Spent with Patient Total time spent providing and/or coordinating discharge services: - Discharge Medications Prescriptions: Rivaroxaban [Xarelto] 15 mg PO BIDWM 15 Days #30 tablet Home Medications: Aspirin [Lo-Dose Aspirin EC] 81 mg PO DAILY 12/20/17 [History] Clopidogrel [Plavix] 75 mg PO DAILY 12/20/17 [History] Donepezil [Aricept] 10 mg PO HS 12/20/17 [History] Guaifenesin [Mucinex] 600 mg PO BID PRN 12/20/17 [History] Lisinopril [Zestril] 5 mg PO DAILY 12/20/17 [History] Memantine HCl 10 mg PO BID 12/20/17 [History] Mirtazapine [Remeron] 15 mg PO HS 12/20/17 [History] Niacin [Niaspan] 1,000 mg PO HS 12/20/17 [History] Nitroglycerin [Nitrostat] 0.4 mg SL Q5M PRN 12/20/17 [History] Omeprazole [PriLOSEC] 40 mg PO DAILY 12/20/17 [History] Simvastatin [Zocor] 40 mg PO HS 12/20/17 [History] Trazodone HCl 50 mg PO HS PRN 12/20/17 [History] Rivaroxaban [Xarelto] 15 mg PO BIDWM 15 Days #30 tablet 12/27/17 [Rx] Allergies/Adverse Reactions: 3 Allergy/AdvReac Type Severity Reaction Status Date / Time No Known Allergies Allergy Verified 05/22/15 22:28 Date of admission: 12/19/17 23:35 Primary care physician: Eleazar Lerma Jr, MD Consults: 12/20/17 03:23 Consult to Occupational Therapy [CONS] Routine Comment: Evaluate, develop and implement POC Reason for Consult: ams Does patient have active BEDREST order?: No Is patient medically & hemodynamically stable?: Yes Patient assessed for mobility or mobilized this visit?: No Consult to Physical Therapy [CONS] Routine Comment: Evaluate, develop and implement POC Reason for Consult: ams Does patient have active BEDREST order?: No Is patient medically & hemodynamically stable?: Yes Patient assessed for mobility or mobilized this visit?: No Consult to Real Estate Subagent [CONS] Routine Reason for SW Consult: AMS, hx of dementia found wandering 12/20/17 03:26 Consult to Nutrition [CONS] Routine Comment: Consulting Provider: NUTRITION Reason for Dietary Consult: Other Other:: protien calorie malnutrition 12/21/17 13:27 Consult to Oncology [CONS] Routine Consulting Provider: [facility] Reason for Consult: DVT on right LE, unsure provoking factors Call Completed: Yes Discharging clinician: Michelle Zavala Anticipated date of discharge: 12/27/17 - Constitutional Vitals: Temp Pulse Resp BP Pulse Ox 98.2 F 58 14 122/74 96 12/27/17 07:54 12/27/17 07:54 12/27/17 07:54 12/27/17 07:54 12/27/17 07:54 General appearance: Present: cooperative, A&O X 1, disheveled. Absent: no acute distress, answers questions appropriately - Patient Status Disposition: Transfer SNF Condition: Fair Functional capacity at discharge: independent ambulation Overall status at discharge: patient is progressing back to baseline - Discharge Instructions Instructions: Urinary Tract Infection in Men (DC), Deep Venous Thrombosis (DC) Follow Up With: Eleazar Lerma Jr, MD [Primary Care Provider] - - Diet and Activity Activity: as per physical therapy Diet: advance to your usual diet, other (supplement with ensure HP BID, and magic cup at dinner) <Antoine Hernandez - Last Filed: 12/27/17 14:47> - NOTES TO OUTPATIENT PROVIDER Notes to Outpatient Provider: Patient was admitted for altered mental status. Workup revealed baseline dementia exacerbated by dehydration and heat exposure. Based on mental status and situation patient requires ECF placement for safety. We will also be sending him home on xarelto 15mg BID for 15 days and then 20mg daily for DVT. Orders not resulted at time of discharge: Pending orders 12/27/17 02:54 Culture,Urine [RM] Routine Date of Encounter: 12/27/17 - Discharge Diagnosis (1) Dementia Priority: Primary Status: Chronic Assessment and Plan: Patient has history of baseline dementia, that was exacerbated by dehydration in the exposure on the day of admission After fluid resuscitation and the patient responded well and was clinically stable Mental status returned to baseline Patient is still only partially oriented and his mental status approximately labile His was his main caregiver but she is at home on hospice and is unable care for him Through extensive work on the [employer] patient is qualified for Medicaid in placement to ECF His clinical status is stable for discharge Qualifiers: Dementia type: Alzheimer's disease Alzheimer's disease onset: unspecified onset Dementia behavioral disturbance: with behavioral disturbance Qualified Code(s): G30.9 - Alzheimer's disease, unspecified; F02.81 - Dementia in other diseases classified elsewhere with behavioral disturbance (2) Right leg DVT Priority: Secondary Status: Acute Assessment and Plan: Patient was diagnosed with right leg 18 during hospital course Patient was originally anticoagulated with Lovenox but was switched to Xarelto once his insurance was confirmed Patient is now anticoagulated and stable for discharge Qualifiers: Affected thrombotic vein of extremity: popliteal Chronicity: acute Qualified Code(s): I82.431 - Acute embolism and thrombosis of right popliteal vein (3) HTN (hypertension) Priority: Secondary Status: Chronic Assessment and Plan: History of chronic hypertension managed with home medications, his blood pressure has been stable here Stable for discharge and continuation of home medications Qualifiers: Hypertension type: essential hypertension Qualified Code(s): I10 - Essential (primary) hypertension (4) CAD (coronary artery disease) Priority: Secondary Status: Chronic Assessment and Plan: Patient has remote history of coronary artery disease managed with antiplatelet therapy at home No acute events here he is stable for discharge and resumption of home medications Qualifiers: Coronary Disease-Associated Artery/Lesion type: [place] artery [place] vs. transplanted heart: [place] heart Associated angina: without angina Qualified Code(s): I25.10 - Atherosclerotic heart disease of [place] coronary artery without angina pectoris (5) UTI (urinary tract infection) Priority: Secondary Status: Acute Assessment and Plan: Patient developed hematuria on last hospital course UA revealed positive leukocyte esterase, culture was sent Patient also complained of mild diffuse abdominal pain, slight dysuria Patient was given 1 dose of 1 g IVP Rocephin Patient has had episodes of uncomplicated UTI in the past This should not require any more treatment and patient is stable for discharge Qualifiers: Urinary tract infection type: site unspecified Hematuria presence: with hematuria Qualified Code(s): N39.0 - Urinary tract infection, site not specified; R31.9 - Hematuria, unspecified Hospital course: Mr. Cortez is a 77 year old male who was brought to the [facility] emergency department after she was found [place] wearing to winter coats in the summer heat, and appeared to be confused. Mr. 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 On presentation patient was mildly tachycardic but afebrile and responded well to intravenous fluids. CT head, chest x-ray, UA, UDS were all noncontributory. Mr. Cortez was admitted for altered mental status exposure. The next day his clinical disposition had greatly improved his altered mental status was back to what was thought to be his baseline, and his lab values were within normal limits. At that point Mr. Cortez was stable for discharge however he could not go home because his was unable to care for him and his insurance would not pay for him to go to an extended care facility. Mr. Cortez spent the rest of his hospital course and a stable condition waiting for placement to an extended care facility and insurance approval. During the hospital stay he did develop a right lower extremity deep venous thrombosis which was treated with Lovenox and then transition to Xarelto without complication. He also developed symptoms concerning for UTI with positive leukocyte esterase on UA, he was given 1 dose of 1 g of Rocephin IV. Patient was stable for discharge and set up for transfer to extended care facility. Discharge discussed with: social work - Time Spent with Patient Total time spent providing and/or coordinating discharge services: Date of admission: 12/19/17 23:35 Primary care physician: Eleazar Lerma Jr, MD Consults: 12/20/17 03:23 Consult to Occupational Therapy [CONS] Routine Comment: Evaluate, develop and implement POC Reason for Consult: ams Does patient have active BEDREST order?: No Is patient medically & hemodynamically stable?: Yes Patient assessed for mobility or mobilized this visit?: No Consult to Physical Therapy [CONS] Routine Comment: Evaluate, develop and implement POC Reason for Consult: ams Does patient have active BEDREST order?: No Is patient medically & hemodynamically stable?: Yes Patient assessed for mobility or mobilized this visit?: No Consult to Real Estate Subagent [CONS] Routine Reason for SW Consult: AMS, hx of dementia found wandering 12/20/17 03:26 Consult to Nutrition [CONS] Routine Comment: Consulting Provider: NUTRITION Reason for Dietary Consult: Other Other:: protien calorie malnutrition 12/21/17 13:27 Consult to Oncology [CONS] Routine Consulting Provider: [facility] Reason for Consult: DVT on right LE, unsure provoking factors Call Completed: Yes - Constitutional Vitals: Temp Pulse Resp BP Pulse Ox 98.2 F 58 14 122/74 96 12/27/17 07:54 12/27/17 07:54 12/27/17 07:54 12/27/17 07:54 12/27/17 07:54 Exam: Patient in no acute distress, alert and oriented to person only Heart in regular rate and rhythm without murmur or gallop Lungs clear to auscultation bilaterally without wheeze or rales or rhonchi Abdomen soft and diffusely tender with normal bowel sounds Legs are 1+ edematous, right leg not tender to palpation Skin warm and dry <Michelle Zavala - Last Filed: 12/27/17 15:58> Orders not resulted at time of discharge: Pending orders 12/27/17 02:54 Culture,Urine [RM] Routine Date of Encounter: 12/27/17 Time of Encounter: 15:55 - Discharge Diagnosis (1) HTN (hypertension) Status: Chronic Qualifiers: Hypertension type: essential hypertension Qualified Code(s): I10 - Essential (primary) hypertension (2) CAD (coronary artery disease) Status: Chronic Qualifiers: Coronary Disease-Associated Artery/Lesion type: [place] artery [place] vs. transplanted heart: [place] heart Associated angina: without angina Qualified Code(s): I25.10 - Atherosclerotic heart disease of [place] coronary artery without angina pectoris (3) DVT prophylaxis Status: Acute (4) Dementia Status: Chronic Qualifiers: Dementia type: Alzheimer's disease Alzheimer's disease onset: unspecified onset Dementia behavioral disturbance: with behavioral disturbance Qualified Code(s): G30.9 - Alzheimer's disease, unspecified; F02.81 - Dementia in other diseases classified elsewhere with behavioral disturbance (5) Right leg DVT Status: Acute Qualifiers: Affected thrombotic vein of extremity: [place]al Chronicity: acute Qualified Code(s): I82.431 - Acute embolism and thrombosis of right popliteal vein Hospital course: Mr. Cortez is a 77 year old male - Time Spent with Patient Total time spent providing and/or coordinating discharge services: Date of admission: 12/19/17 23:35 Primary care physician: Eleazar Lerma Jr, MD Consults: 12/20/17 03:23 Consult to Occupational Therapy [CONS] Routine Comment: Evaluate, develop and implement POC Reason for Consult: ams Does patient have active BEDREST order?: No Is patient medically & hemodynamically stable?: Yes Patient assessed for mobility or mobilized this visit?: No Consult to Physical Therapy [CONS] Routine Comment: Evaluate, develop and implement POC Reason for Consult: ams Does patient have active BEDREST order?: No Is patient medically & hemodynamically stable?: Yes Patient assessed for mobility or mobilized this visit?: No Consult to Real Estate Subagent [CONS] Routine Reason for SW Consult: AMS, hx of dementia found wandering 12/20/17 03:26 Consult to Nutrition [CONS] Routine Comment: Consulting Provider: NUTRITION Reason for Dietary Consult: Other Other:: protien calorie malnutrition 12/21/17 13:27 Consult to Oncology [CONS] Routine Consulting Provider: [facility] Reason for Consult: DVT on right LE, unsure provoking factors Call Completed: Yes - Constitutional Vitals: Temp Pulse Resp BP Pulse Ox 98.1 F 81 16 113/70 97 12/27/17 11:30 12/27/17 11:30 12/27/17 11:30 12/27/17 11:30 12/27/17 11:30 - Attending Attestation I examined this patient and my medical decision-making was reviewed with the Resident Physician Dr. Cervantes. I agree with the documented findings, disposition and treatment plan as described except to the extent set forth below. Mr. Cortez is a 77 year old male who was brought to the [facility] emergency department after he was found [place] wearing to winter coats in the summer heat, and appeared to be confused. He does have acute UTI for which he was started on empirical abx Rocephin, however his urine cx did not grow any bacteria. He also has Rt LE DVT for which he was started on Xarelto. Pt is medically stable to d/c to ECF today. He is alert, awake and oriented to self. Denied any CP.
[2017-12-28] MEDS: Mirtazapine 15 MG TABLET PO SCH (00:40)
[2017-12-28] MEDS: traZODone 50 MG TABLET PO PRN (00:40)
[2017-12-28] MEDS: Aspirin Enteric Coated 81 MG Tablet PO SCH (09:10)
[2017-12-28] MEDS: *HR* Rivaroxaban 15 MG TABLET PO SCH (09:10)
[2017-12-28 11:57] VITALS: BP 106/69
--- NOTE | 2017-12-28 15:08 | Internal Med Progress Note ---
<Antoine Hernandez - Last Filed: 12/28/17 15:06> Hospitalist Progress Note - Encounter Date of Encounter: 12/28/17 Time of Encounter: 09:00 - Subjective Interval History: Patient seen and examined this morning, no acute events overnight Denied shortness of breath, chest pain, had no other complaints - Exam Vitals: Temp Pulse Resp BP Pulse Ox 97.9 F 59 16 106/69 98 12/28/17 11:55 12/28/17 11:55 12/28/17 11:55 12/28/17 11:55 12/28/17 11:55 Exam: Patient in no acute distress, alert and oriented to person only Heart in regular rate and rhythm without murmur or gallop Lungs clear to auscultation bilaterally without wheeze or rales or rhonchi Abdomen soft and nontender with normal bowel sounds Legs are nonedematous, right leg not tender to palpation Skin warm and dry - Assessment and Plan (1) Dementia Status: Chronic Assessment and Plan: Patient back to baseline dementia, stable for discharge (2) Right leg DVT Status: Acute Assessment and Plan: Patient is being anticoagulated with Xarelto Stable for discharge (3) HTN (hypertension) Status: Chronic Assessment and Plan: Patient's hypertension is being managed with home medications Blood pressure stable for discharge (4) UTI (urinary tract infection) Status: Acute Assessment and Plan: Patient develop dysuria 2 days ago, UA was suspicious for urinary tract infection Patient was given 1 g of Rocephin once Patient dysuria resolved, stable for discharge - Time Spent with Patient Total time spent is greater than 50% in coordination of care (as documented) at patient's floor/unit and/or counseling patient: Internal Medicine: Result - Labs CBC & Chem 7: 12/27/17 05:57 12/21/17 06:24 - ABG Interpretation ABG results: PT/INR, D-dimer PT 12.6 Seconds (9.4-12.1) H 12/19/17 20:11 D-Dimer 2044 ng/mLFEU (0-500) H 12/21/17 15:55 Consult Discharge Plan - Plan Instructions: Urinary Tract Infection in Men (DC), Deep Venous Thrombosis (DC) Referrals: Eleazar Lerma Jr, MD [Primary Care Provider] - Prescriptions: Rivaroxaban [Xarelto] 15 mg PO BIDWM 15 Days #30 tablet <Michelle Zavala - Last Filed: 12/28/17 15:38> Hospitalist Progress Note - Encounter Date of Encounter: 12/28/17 - Exam Vitals: Temp Pulse Resp BP Pulse Ox 97.9 F 59 16 106/69 98 12/28/17 11:55 12/28/17 11:55 12/28/17 11:55 12/28/17 11:55 12/28/17 11:55 - Assessment and Plan (1) HTN (hypertension) Status: Chronic (2) CAD (coronary artery disease) Status: Chronic (3) DVT prophylaxis Status: Acute (4) Dementia Status: Chronic (5) Right leg DVT Status: Acute - Time Spent with Patient Total time spent is greater than 50% in coordination of care (as documented) at patient's floor/unit and/or counseling patient: Internal Medicine: Result - Labs CBC & Chem 7: 12/27/17 05:57 12/21/17 06:24 - ABG Interpretation ABG results: PT/INR, D-dimer PT 12.6 Seconds (9.4-12.1) H 12/19/17 20:11 D-Dimer 2044 ng/mLFEU (0-500) H 12/21/17 15:55 - Attending Attestation I examined this patient and my medical decision-making was reviewed with the Resident Physician Dr. Cervantes. I agree with the documented findings, disposition and treatment plan as described except to the extent set forth below. Mr. Cortez is a 77 year old male who was brought to the [facility] emergency department after he was found [place] wearing to winter coats in the summer heat, and appeared to be confused. He does have acute UTI for which he was started on empirical abx Rocephin, however his urine cx did not grow any bacteria. He also has Rt LE DVT for which he was started on Xarelto. He is alert, awake and oriented to self. Denied any CP. No events over night. Pt is medically stable to d/c to ECF today. <Antoine Hernandez - Last Filed: 12/28/17 15:06> (1) Dementia Qualifiers: Dementia type: Alzheimer's disease Alzheimer's disease onset: unspecified onset Dementia behavioral disturbance: with behavioral disturbance Qualified Code(s): G30.9 - Alzheimer's disease, unspecified; F02.81 - Dementia in other diseases classified elsewhere with behavioral disturbance (2) Right leg DVT Qualifiers: Affected thrombotic vein of extremity: popliteal Chronicity: acute Qualified Code(s): I82.431 - Acute embolism and thrombosis of right popliteal vein (3) HTN (hypertension) Qualifiers: Hypertension type: essential hypertension Qualified Code(s): I10 - Essential (primary) hypertension (4) UTI (urinary tract infection) Qualifiers: Urinary tract infection type: site unspecified Hematuria presence: with hematuria Qualified Code(s): N39.0 - Urinary tract infection, site not specified; R31.9 - Hematuria, unspecified <Michelle Zavala - Last Filed: 12/28/17 15:38> (1) HTN (hypertension) Qualifiers: Hypertension type: essential hypertension Qualified Code(s): I10 - Essential (primary) hypertension (2) CAD (coronary artery disease) Qualifiers: Coronary Disease-Associated Artery/Lesion type: [place] artery [place] vs. transplanted heart: [place] heart Associated angina: without angina Qualified Code(s): I25.10 - Atherosclerotic heart disease of [place] coronary artery without angina pectoris (4) Dementia Qualifiers: Dementia type: Alzheimer's disease Alzheimer's disease onset: unspecified onset Dementia behavioral disturbance: with behavioral disturbance Qualified Code(s): G30.9 - Alzheimer's disease, unspecified; F02.81 - Dementia in other diseases classified elsewhere with behavioral disturbance (5) Right leg DVT Qualifiers: Affected thrombotic vein of extremity: popliteal Chronicity: acute Qualified Code(s): I82.431 - Acute embolism and thrombosis of right popliteal vein
== END 2017-12-28 14:10 ==
LOC: 3BNU 20:05 → EMEROOARM 20:05 → SUATTDRO 23:35 → 3BNU 23:43
PROVIDERS: ADMIT Pediatrics; ATTEND Family Medicine